=== PATIENT | female | born 1980 | race Caucasian/White ===

== ENCOUNTER 2016-11-09 15:31 | Emergency (ER) | payer MEDICAID ==
[~2016-11-09] VITALS: Ht 175.3 cm; Wt 56.0 kg
[~2016-11-09 15:31] MED LIST: ALPR2TAB3 PO; ASPI81TA81 PO; METH40TA PO; MIRTA15 PO; OLAN5TAB PO; ZOLP10TA3 PO
[2016-11-09 15:43] VITALS: BP 88/55; PULSE 63; RESP 16; TEMP 98.3; O2SAT 100
[2016-11-09 16:29] LABS: MEAN CORPUSCULAR HGB CONC 29.6 % (32.0-36.0)
[2016-11-09] MEDS ORDERED: SODIUM CHLOR 0.9% 1000 ML INJ 1,000 ML IV ONE (16:30)
[2016-11-09] MEDS ORDERED: REME15TA PO (16:30)
--- NOTE | 2016-11-09 16:36 | PD ---
HPI Chief Complaint: General Weakness Time Seen by Provider: 16:16 Travel History International Travel<30 days: No Contact w/Intl Traveler<30days: No Traveled to known affect area: No History of Present Illness HPI This 36-year-old female is complaining of generalized weakness. She developed food poisoning about 2 days ago. She had vomiting which has settled down. She has ongoing diarrhea. She has a history of colectomy because of familial polyposis. She had a colectomy at the age of 13. She has a history of iron deficiency anemia. Today she went for her pain. Infusion and her doctor noted that she her blood pressure was low and she was somewhat lethargic and recommended that she come here. PFSH Past Medical History Hx Anticoagulant Therapy: Yes (81 MG. 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 ) GERD: No Genitourinary: Yes Headaches: No Hepatitis: No Hiatal Hernia: No Hypertension: No Immune Disorder: No Musculoskeletal: No Psychiatric: Yes Reproductive: No Respiratory: No Immunizations Current: Yes Myocardial Infarction: No Radiation Therapy: No Seizures: No Sleep Apnea: No Ulcer: No Influenza Vaccination: No ?: Not : 12 Para: 4 Miscarriage: 8 : 0 Past Surgical History Abdominal Surgery: Yes (COLECTOMY,APPENDECTOMY, Ileorectal anastomosis) AICD: No Appendectomy: Yes (1994) Arteriovenous Shunt: No Cardiac Surgery: No Ear Surgery: No Endocrine Surgery: No Eye Surgery: No Genitourinary Surgery: No Gynecologic Surgery: No Insulin Pump: No Oral Surgery: No Pacemaker: No Thoracic Surgery: No Other Surgery: Yes (TIBULO VILLOUS MASS REMOVED 04/2013) Social History Alcohol Use: No Tobacco Use: Yes (1 PPD) Substance Use: Yes ( PREVIOUS PSA ABUSE/ MARIJUANA) Allergies-Medications (Allergen,Severity, Reaction): Coded Allergies: Ativan (Verified Allergy, Severe, sts memory loss, 11/09/16) Compazine (Verified Allergy, Severe, seizures, 11/09/16) Fentanyl (Verified Allergy, Severe, Tachycardia, SEIZURES, 11/09/16) Haldol (Verified Allergy, Severe, EPS, 11/09/16) Keflex (Verified Allergy, Severe, BLOODY STOOL, 11/09/16) Morphine (Verified Allergy, Severe, Seizures, 11/09/16) Phenergan (Verified Allergy, Severe, Tachycardia, 11/09/16) Latex (Verified Allergy, Intermediate, Itching, 11/09/16) Propofol (Verified Allergy, Mild, VOMITTING, 11/09/16) Buspar (Verified Allergy, Unknown, 11/09/16) Demerol (Verified Allergy, Unknown, UNKNOWN, 11/09/16) Versed (Verified Allergy, Unknown, UNKNOWN, 11/09/16) Reported Meds & Prescriptions Reported Meds & Active Scripts Active Reported Remeron (Mirtazapine) 15 Mg Tab 7.5 Mg PO HS Methadone (Methadone HCl) 40 Mg Tab 50 Mg PO DAILY Mirtazapine 15 Mg Tab 7.5 Mg PO HS Olanzapine 5 Mg Tab 5 Mg PO HS Zolpidem (Zolpidem Tartrate) 10 Mg Tab 10 Mg PO HS PRN Alprazolam 2 Mg Tab 2 Mg PO TID PRN Review of Systems General / Constitutional: No: Fever, Chills Eyes: No: Diploplia HENT: No: Headaches Cardiovascular: No: Chest Pain or Discomfort Respiratory: No: Cough Gastrointestinal: Positive: Vomiting, Diarrhea Genitourinary: No: Frequency Skin: No Rash Neurologic: Positive: Weakness, No: Focal Abnormalities Endocrine: No: Heat Intolerance Hematologic/Lymphatic: No: Easy Bruising Physical Exam Narrative GENERAL: Thin female she is somewhat low. Arrival SKIN: Focused skin assessment warm/dry. HEAD: Atraumatic. Normocephalic. EYES: Pupils equal and round. No scleral icterus. No injection or drainage. ENT: No nasal bleeding or discharge. Mucous membranes pink and moist. NECK: Trachea midline. No JVD. CARDIOVASCULAR: Regular rate and rhythm. No murmur appreciated. RESPIRATORY: No accessory muscle use. Clear to auscultation. Breath sounds equal bilaterally. GASTROINTESTINAL: Abdomen soft, non-tender, nondistended. Hepatic and splenic margins not palpable. MUSCULOSKELETAL: No obvious deformities. No clubbing. No cyanosis. No edema. NEUROLOGICAL: Listless. No obvious cranial nerve deficits. Motor grossly within normal limits. Normal speech. PSYCHIATRIC: Appropriate mood and affect; insight and judgment normal. Data Data Last Documented VS Vital Signs Date Time Temp Pulse Resp B/P Pulse Ox O2 Delivery O2 Flow Rate FiO2 11/09/16 17:14 62 18 105/52 97 Room Air 11/09/16 15:43 98.3 Orders Complete Blood Count With Diff (11/09/16 16:27) Comprehensive Metabolic Panel (11/09/16 16:27) Thyroid Stimulating Hormone (11/09/16 16:27) Sodium Chlor 0.9% 1000 Ml Inj (Ns 1000 M (11/09/16 16:30) Potassium Chloride (Kcl) (11/09/16 18:00) Labs Laboratory Tests Test 11/09/16 16:40 White Blood Count 3.0 TH/MM3 Red Blood Count 4.37 MIL/MM3 Hemoglobin 8.1 GM/DL Hematocrit 27.5 % Mean Corpuscular Volume 62.9 FL Mean Corpuscular Hemoglobin 18.6 PG Mean Corpuscular Hemoglobin 29.6 % Concent Red Cell Distribution Width 18.1 % Platelet Count 247 TH/MM3 Mean Platelet Volume 7.4 FL Neutrophils (%) (Auto) 38.5 % Lymphocytes (%) (Auto) 46.5 % Monocytes (%) (Auto) 12.7 % Eosinophils (%) (Auto) 1.8 % Basophils (%) (Auto) 0.5 % Neutrophils # (Auto) 1.2 TH/MM3 Lymphocytes # (Auto) 1.3 TH/MM3 Monocytes # (Auto) 0.4 TH/MM3 Eosinophils # (Auto) 0.1 TH/MM3 Basophils # (Auto) 0.0 TH/MM3 CBC Comment AUTO DIFF Differential Comment AUTO DIFF CONFIRMED Sodium Level 142 MEQ/L Potassium Level 3.2 MEQ/L Chloride Level 104 MEQ/L Carbon Dioxide Level 30.0 MEQ/L Anion Gap 8 MEQ/L Blood Urea Nitrogen 18 MG/DL Creatinine 0.97 MG/DL Estimat Glomerular Filtration 65 ML/MIN Rate Random Glucose 89 MG/DL Calcium Level 8.0 MG/DL Total Bilirubin 0.2 MG/DL Aspartate Amino Transf 15 U/L (AST/SGOT) Alanine Aminotransferase 21 U/L (ALT/SGPT) Alkaline Phosphatase 50 U/L Total Protein 6.2 GM/DL Albumin 3.1 GM/DL Thyroid Stimulating Hormone 1.560 uIU/ML 3rd Gen [facility] Medical Decision Making Medical Screen Exam Complete: Yes Emergency Medical Condition: Yes Medical Record Reviewed: Yes Differential Diagnosis Differential includes gastroenteritis, dehydration Narrative Course Patient has been given IV fluids and has become more alert. Her potassium is low at 3.2 and she's been given oral supplement. She has been tolerating fluids well and is stable for discharge Diagnosis Primary Impression: Gastroenteritis Additional Impression: Dehydration Disposition: 01 DISCHARGE HOME Condition: Stable Karan Bhakta MD Nov 09, 2016 16:36
[2016-11-09 16:53] LABS: AUTOMATED NEUTROPHIL # 1.2 TH/MM3 (1.8-7.7); BASOPHIL % 0.5 % (0.0-2.0); EOSINOPHIL # 0.1 TH/MM3 (0-0.4); EOSINOPHIL % 1.8 % (0.0-4.0); HEMATOCRIT 27.5 % (35.0-46.0); LYMPH % 46.5 % (9.0-44.0); LYMPHOCYTE # 1.3 TH/MM3 (1.0-4.8); MEAN CELL VOLUME 62.9 FL (80.0-100.0); MEAN CORPUSCULAR HEMOGLOBIN 18.6 PG (27.0-34.0); MONO % 12.7 % (0.0-8.0); NEUT % 38.5 % (16.0-70.0); PLATELET COUNT 247 TH/MM3 (150-450); RED BLOOD COUNT 4.37 MIL/MM3 (4.00-5.30); RED CELL DISTRIBUTION WIDTH 18.1 % (11.6-17.2)
[2016-11-09 17:14] VITALS: BP 105/52; PULSE 62; RESP 18; O2SAT 97
[2016-11-09 17:23] LABS: CHLORIDE 104 MEQ/L (98-107); POTASSIUM 3.2 MEQ/L (3.5-5.1); SODIUM (NA) 142 MEQ/L (136-145)
[2016-11-09 17:27] LABS: ANION GAP 8 MEQ/L (5-15); BLOOD UREA NITROGEN 18 MG/DL (7-18)
[2016-11-09 17:30] LABS: ALT (GPT) 21 U/L (10-53); AST (GOT) 15 U/L (15-37); GLOMERULAR FILTRATION RATE 65 ML/MIN (>89)
[2016-11-09 17:31] LABS: TOTAL BILIRUBIN ADULT 0.2 MG/DL (0.2-1.0)
[2016-11-09 17:33] LABS: ALKALINE PHOSPHATASE 50 U/L (45-117)
[2016-11-09] MEDS ORDERED: POTASSIUM CHLORIDE 20 MEQ CONTROLLED RELEASE TAB PO ONE (18:00)
[2016-11-09 18:03] LABS: HEMO FLAGS AUTO DIFF
[2016-11-09 18:19] LABS: SCAN/DIFF AUTO DIFF CONFIRMED
[2016-11-09 18:41] VITALS: BP 100/62
[2016-11-23] MEDS ORDERED: AMOX500T PO ×2 (11:09→15:22)
== END 2016-11-09 18:43 | disposition home or self-care (01) ==
LOC: PHED 15:31
DX: K52.9 Noninfective gastroenteritis and colitis, unspecified (principal); E86.0 Dehydration
CPT/HCPCS: 80053; 84443; 85025; 96360; 99284; J7030

== ENCOUNTER 2017-03-15 13:54 | Inpatient (IN) | payer MEDICAID ==
[~2017-03-15] VITALS: Ht 172.7 cm; Wt 65.6 kg
[2017-03-15] VITALS (18 sets, daily range): BP systolic 119–171; BP diastolic 80–97; PULSE 68–88; RESP 12–16; TEMP 97.8; O2SAT 96–100
[~2017-03-15 13:54] MED LIST changes: +AMOX500T PO; -ASPI81TA81 PO; -MIRTA15 PO; +REME15TA PO
[2017-03-15] MEDS ORDERED: NALOXONE HCL 0.4 MG/ML AMP ONE ×4 (14:00→14:11)
[2017-03-15] MEDS ORDERED: SUCCINYLCHOLINE CHLORIDE 200 MG/10 ML VIAL ONE (14:12)
[2017-03-15] MEDS ORDERED: ETOMIDATE 20 MG/10 ML VIAL ONE (14:12)
[2017-03-15] MEDS ORDERED: PROPOFOL 1000 MG/100 ML INJ 100 ML ONE (14:25)
[2017-03-15] MEDS ORDERED: SODIUM CHLOR 0.9% 1000 ML INJ 1,000 ML IV SCH (14:25)
[2017-03-15] MEDS ORDERED: ETOMIDATE 20 MG/10 ML VIAL IV PUSH ONE (14:30)
[2017-03-15] MEDS ORDERED: SUCCINYLCHOLINE CHLORIDE 200 MG/10 ML VIAL IV PUSH ONE (14:30)
[2017-03-15] MEDS ORDERED: SODIUM CHLORIDE 0.9% FLUSH 5 ML FLUSH IV FLUSH PRN (14:30)
[2017-03-15] MEDS ORDERED: PROPOFOL 1000 MG/100 ML INJ 100 ML IV SCH (14:30)
[2017-03-15] MEDS ORDERED: NALOXONE HCL 0.4 MG/ML AMP IV PUSH PRN (14:30)
[2017-03-15] MEDS ORDERED: ONDANSETRON HCL 4 MG/2 ML VIAL IV PUSH ONE (14:30)
--- NOTE | 2017-03-15 15:03 | RADRPT ---
EXAM DATE/TIME: 03/15/2017 14:37 [place] COMPARISON: No previous studies available for comparison. INDICATIONS : Post intubation; overdose. MEDICAL HISTORY : Unobtainable. SURGICAL HISTORY : Unobtainable. ENCOUNTER: Initial ACUITY: 1 day PAIN SCORE: Non-responsive. LOCATION: Bilateral chest FINDINGS: A single view of the chest demonstrates endotracheal tube in satisfactory position. NG tube in stomac h. Minimal basal atelectasis. Heart size within normal limits. No pneumothorax. CONCLUSION: 1. Endotracheal tube in satisfactory position. Minimal basal atelectasis. Warren Mathew MD on March 15, 2017 at 15:00 Board Certified Radiologist. This report was verified electronically.
[2017-03-15 15:14] LABS: BLOOD, URINE NEG (NEG); COMMENT (UR) CATH-CULT NOT IND; CULTURE IF INDICATED CATH CULTURE NOT IND; GLUCOSE,URINE NEG (NEG); KETONE, URINE NEG (NEG); NITRITE,URINE NEG (NEG); PH, URINE 5.5 (5.0-8.5); URINE COLOR YELLOW (YELLW/STRAW)
[2017-03-15 15:24] LABS: AUTOMATED NEUTROPHIL # 2.6 TH/MM3 (1.8-7.7); BASOPHIL % 0.7 % (0.0-2.0); EOSINOPHIL % 0.7 % (0.0-4.0); HEMATOCRIT 43.2 % (35.0-46.0); LYMPH % 34.3 % (9.0-44.0); LYMPHOCYTE # 1.6 TH/MM3 (1.0-4.8); MEAN CELL VOLUME 82.5 FL (80.0-100.0); MEAN CORPUSCULAR HEMOGLOBIN 27.3 PG (27.0-34.0); MEAN CORPUSCULAR HGB CONC 33.1 % (32.0-36.0); MONO % 11.1 % (0.0-8.0); NEUT % 53.2 % (16.0-70.0); PLATELET COUNT 199 TH/MM3 (150-450); RED BLOOD COUNT 5.24 MIL/MM3 (4.00-5.30); RED CELL DISTRIBUTION WIDTH 15.1 % (11.6-17.2); WHITE BLOOD COUNT 4.8 TH/MM3 (4.0-11.0)
[2017-03-15 15:27] LABS: HEMO FLAGS AUTO DIFF
[2017-03-15 15:30] LABS: ANION GAP 11 MEQ/L (5-15)
[2017-03-15 15:31] LABS: AMPHETAMINE, URINE NEG (NEG); BARBITURATES, URINE NEG (NEG); COCAINE, URINE POS (NEG)
[2017-03-15 15:37] LABS: ACETAMINOPHEN LESS THAN 2.0 MCG/ML (10.0-30.0); ALKALINE PHOSPHATASE 108 U/L (45-117); ALT (GPT) 49 U/L (10-53); AST (GOT) 35 U/L (15-37); BICARBONATE 25.5 MEQ/L (21.0-32.0); BLOOD UREA NITROGEN 11 MG/DL (7-18); CHLORIDE 104 MEQ/L (98-107); CREATINE KINASE 141 U/L (26-192); GLOMERULAR FILTRATION RATE 68 ML/MIN (>89); POTASSIUM 3.3 MEQ/L (3.5-5.1); SODIUM (NA) 140 MEQ/L (136-145); TOTAL BILIRUBIN ADULT 0.8 MG/DL (0.2-1.0)
[2017-03-15 15:40] LABS: APTT (PATIENT) 28.3 SEC (24.3-30.1); PROTHROMBIN TIME - PATIENT 10.9 SEC (9.8-11.6)
[2017-03-15] MEDS ORDERED: METH10TA PO (15:42)
[2017-03-15] MEDS ORDERED: MIDAZOLAM 100 MG/ML INJ 100 ML IV SCH ×2 (15:45→17:00)
[2017-03-15] MEDS ORDERED: MIDAZOLAM 100 MG/ML INJ 100 ML ONE (15:47)
[2017-03-15 16:11] LABS: SCAN/DIFF AUTO DIFF CONFIRMED
--- NOTE | 2017-03-15 16:17 | PD ---
HPI Chief Complaint: OD/ Ingestion Time Seen by Provider: 14:25 Travel History International Travel<30 days: No Contact w/Intl Traveler<30days: No Traveled to known affect area: No History of Present Illness HPI Patient is a 36-year-old female brought in by EMS after she was found obtunded. Her mother called police for a well-being check and she was found at in male' s house in bed unresponsive. She does have a history of drug abuse. The gentleman with her did report that she had been using a lot of drugs, but was unable to specify what. EMS says that they gave a total of 2 mg of Narcan with some response. Per EMS, she was barely breathing on their arrival. Currently, patient is unconscious and unable to provide any history. PFSH Past Medical History Hx Anticoagulant Therapy: Yes (81 MG. ASA DAILY) ADD: Yes ADHD: Yes Anemia: Yes Arthritis: No Asthma: No Autoimmune Disease: No Blood Disorders: No Bipolar Disorder: Yes Anxiety: Yes Depression: Yes Heart Rhythm Problems: Yes (TACHYCARDIA) Cancer: Yes (PRECANCEROUS POLYPS) Cardiac Catheterization: Yes Cardiovascular Problems: Yes (SINOATRIAL NODE DYSFUNCTION, TRICUSPID VALVE D/O) High Cholesterol: No Chemotherapy: No Chest Pain: No Congestive Heart Failure: No COPD: No Cerebrovascular Accident: No Diabetes: Yes Diminished Hearing: No Endocrine: No Gastrointestinal Disorders: Yes (COLECTOMY DUE TO Familial adenomatous polyposis ) GERD: No Genitourinary: Yes Headaches: No Hepatitis: No Hiatal Hernia: No Hypertension: No Immune Disorder: No Musculoskeletal: No Psychiatric: Yes Reproductive: No Respiratory: No Immunizations Current: Yes Myocardial Infarction: No Radiation Therapy: No Seizures: No Sleep Apnea: No Ulcer: No Tetanus Vaccination: Unknown Influenza Vaccination: No ?: Not : 12 Para: 4 Miscarriage: 8 : 0 Past Surgical History Abdominal Surgery: Yes (COLECTOMY,APPENDECTOMY, Ileorectal anastomosis) AICD: No Appendectomy: Yes (1994) Arteriovenous Shunt: No Cardiac Surgery: No Ear Surgery: No Endocrine Surgery: No Eye Surgery: No Genitourinary Surgery: No Gynecologic Surgery: No Insulin Pump: No Oral Surgery: No Pacemaker: No Thoracic Surgery: No Other Surgery: Yes (TIBULO VILLOUS MASS REMOVED 04/2013) Social History Alcohol Use: No Tobacco Use: Yes (1 PPD) Substance Use: Yes (OPIATES, BENZOS, METHADONE) Allergies-Medications (Allergen,Severity, Reaction): Coded Allergies: Ativan (Verified Allergy, Severe, sts memory loss, 11/09/16) Compazine (Verified Allergy, Severe, seizures, 11/09/16) Fentanyl (Verified Allergy, Severe, Tachycardia, SEIZURES, 11/09/16) Haldol (Verified Allergy, Severe, EPS, 11/09/16) Keflex (Verified Allergy, Severe, BLOODY STOOL, 11/09/16) Morphine (Verified Allergy, Severe, Seizures, 11/09/16) Phenergan (Verified Allergy, Severe, Tachycardia, 11/09/16) Latex (Verified Allergy, Intermediate, Itching, 11/09/16) Propofol (Verified Allergy, Mild, VOMITTING, 11/09/16) Buspar (Verified Allergy, Unknown, 11/09/16) Reported Meds & Prescriptions Reported Meds & Active Scripts Active Reported Methadone (Methadone HCl) 10 Mg Tab 170 Mg PO DAILY Remeron (Mirtazapine) 15 Mg Tab 7.5 Mg PO HS Olanzapine 5 Mg Tab 5 Mg PO HS Zolpidem (Zolpidem Tartrate) 10 Mg Tab 10 Mg PO HS PRN Alprazolam 2 Mg Tab 2 Mg PO TID PRN Review of Systems ROS Limitations: Intoxication, Altered Mental Status Physical Exam Narrative GENERAL: Obtunded, minimal response to painful stimuli. SKIN: Focused skin assessment warm/dry. Tract cantrell to left before meals. No signs of infection. HEAD: Atraumatic. Normocephalic. EYES: Pupils equal and round and reactive (small). No scleral icterus. ENT: Mucous membranes pink and moist. NECK: Trachea midline. No JVD. CARDIOVASCULAR: Tachycardia. No murmur appreciated. RESPIRATORY: Agonal breathing. Clear to auscultation. Breath sounds equal bilaterally. GASTROINTESTINAL: Abdomen soft, non-tender, nondistended. MUSCULOSKELETAL: No obvious deformities. No clubbing. No cyanosis. No edema. NEUROLOGICAL: Unconscious. No obvious cranial nerve deficits. Motor grossly within normal limits. Normal speech. PSYCHIATRIC: Appropriate mood and affect; insight and judgment normal. Data Data Last Documented VS Vital Signs Date Time Temp Pulse Resp B/P Pulse Ox O2 Delivery O2 Flow Rate FiO2 03/15/17 16:00 86 14 156/89 100 Ventilator 40 03/15/17 14:00 2 03/15/17 14:00 97.8 Orders Naloxone Inj (Narcan Inj) (03/15/17 14:00) Naloxone Inj (Narcan Inj) (03/15/17 14:04) Naloxone Inj (Narcan Inj) (03/15/17 14:07) Naloxone Inj (Narcan Inj) (03/15/17 14:11) Etomidate Inj (Amidate Inj) (03/15/17 14:12) Succinylcholine Inj (Quelicin Inj) (03/15/17 14:12) Propofol 1000 Mg/100 Ml Inj (Diprivan 10 (03/15/17 14:25) Complete Blood Count With Diff (03/15/17 14:25) Comprehensive Metabolic Panel (03/15/17 14:25) Creatine Kinase (Cpk) (03/15/17 14:25) Prothrombin Time / Inr (Pt) (03/15/17 14:25) Act Partial Throm Time (Ptt) (03/15/17 14:25) Troponin I (03/15/17 14:25) Urinalysis - C+S If Indicated (03/15/17 14:25) Ua Includes Microscopic (03/15/17 14:25) Lactic Acid Sepsis Protocol (03/15/17 14:25) Chest, Single Ap (03/15/17 14:25) Ct Brain W/O Iv Contrast(Rout) (03/15/17 14:25) Blood Glucose (03/15/17 14:25) Ecg Monitoring (03/15/17 14:25) Iv Access Insert/Monitor (03/15/17 14:25) Oximetry (03/15/17 14:25) Urinary Catheter Insert/Apply (03/15/17 14:25) Sodium Chloride 0.9% Flush (Ns Flush) (03/15/17 14:30) Sodium Chlor 0.9% 1000 Ml Inj (Ns 1000 M (03/15/17 14:25) Drug Screen, Random Urine (03/15/17 14:25) Alcohol (Ethanol) (03/15/17 14:25) Tylenol (Acetaminophen) (03/15/17 14:25) Salicylates (Aspirin) (03/15/17 14:25) Ed Urine Pregnancytest Poc (03/15/17 14:25) Propofol 1000 Mg/100 Ml Inj (Diprivan 10 (03/15/17 14:30) Ondansetron Inj (Zofran Inj) (03/15/17 14:30) Naloxone Inj (Narcan Inj) (03/15/17 14:30) Succinylcholine Inj (Quelicin Inj) (03/15/17 14:30) Etomidate Inj (Amidate Inj) (03/15/17 14:30) Midazolam 100 Mg/Ml Inj (Versed 100 Mg/M (03/15/17 15:45) Neurological Rass Scale Q30MX2,Q2HX4,Q4H (03/15/17 15:32) Midazolam 100 Mg/Ml Inj (Versed 100 Mg/M (03/15/17 15:47) Admit Order (Ed Use Only) (03/15/17 ) Labs Laboratory Tests Test 03/15/17 03/15/17 03/15/17 14:30 14:35 15:18 White Blood Count 4.8 TH/MM3 Red Blood Count 5.24 MIL/MM3 Hemoglobin 14.3 GM/DL Hematocrit 43.2 % Mean Corpuscular Volume 82.5 FL Mean Corpuscular Hemoglobin 27.3 PG Mean Corpuscular Hemoglobin 33.1 % Concent Red Cell Distribution Width 15.1 % Platelet Count 199 TH/MM3 Mean Platelet Volume 7.0 FL Neutrophils (%) (Auto) 53.2 % Lymphocytes (%) (Auto) 34.3 % Monocytes (%) (Auto) 11.1 % Eosinophils (%) (Auto) 0.7 % Basophils (%) (Auto) 0.7 % Neutrophils # (Auto) 2.6 TH/MM3 Lymphocytes # (Auto) 1.6 TH/MM3 Monocytes # (Auto) 0.5 TH/MM3 Eosinophils # (Auto) 0.0 TH/MM3 Basophils # (Auto) 0.0 TH/MM3 CBC Comment AUTO DIFF Differential Comment AUTO DIFF CONFIRMED Prothrombin Time 10.9 SEC Prothromb Time International 1.0 RATIO Ratio Activated Partial 28.3 SEC Thromboplast Time Urine Color YELLOW Urine Turbidity CLEAR Urine pH 5.5 Urine Specific [place] 1.017 Urine Protein NEG mg/dL Urine Glucose (UA) NEG mg/dL Urine Ketones NEG mg/dL Urine Occult Blood NEG Urine Nitrite NEG Urine Bilirubin NEG Urine Urobilinogen LESS THAN 2.0 MG/DL Urine Leukocyte Esterase NEG Microscopic Urinalysis Comment CATH-CULT NOT IND Sodium Level 140 MEQ/L Potassium Level 3.3 MEQ/L Chloride Level 104 MEQ/L Carbon Dioxide Level 25.5 MEQ/L Anion Gap 11 MEQ/L Blood Urea Nitrogen 11 MG/DL Creatinine 0.94 MG/DL Estimat Glomerular Filtration 68 ML/MIN Rate Random Glucose 115 MG/DL Calcium Level 8.7 MG/DL Total Bilirubin 0.8 MG/DL Aspartate Amino Transf 35 U/L (AST/SGOT) Alanine Aminotransferase 49 U/L (ALT/SGPT) Alkaline Phosphatase 108 U/L Total Creatine Kinase 141 U/L Troponin I LESS THAN 0.02 NG/ML Total Protein 8.3 GM/DL Albumin 3.9 GM/DL Urine Opiates Screen NEG Acetaminophen Level LESS THAN 2.0 MCG/ML Urine Barbiturates Screen NEG Urine Amphetamines Screen NEG Urine Benzodiazepines Screen POS Urine Cocaine Screen POS Urine Cannabinoids Screen NEG Ethyl Alcohol Level LESS THAN 3 MG/DL Lactic Acid Level 1.6 mmol/L Salicylates Level 1.8 MG/DL Blood Gas Puncture Site RT BRACHIAL Blood Gas Patient Temperature 98.6 Blood Gas HCO3 25 mmol/L Blood Gas Base Excess 1.5 mmol/L Blood Gas Oxygen Saturation 94 % Arterial Blood pH 7.44 Arterial Blood Partial 38 mmHg Pressure CO2 Arterial Blood Partial 75 mmHG Pressure O2 Arterial Blood Oxygen Content 17.2 Vol % Arterial Blood 1.7 % Carboxyhemoglobin Arterial Blood Methemoglobin 0.4 % Blood Gas Hemoglobin 13.0 G/DL Oxygen Delivery Device VENTILATOR Blood Gas Ventilator Setting AC 14/500/5+ Blood Gas Inspired Oxygen 40 % [facility] Medical Decision Making Medical Screen Exam Complete: Yes Emergency Medical Condition: Yes Medical Record Reviewed: Yes Interpretation(s) ECG shows sinus tachycardia at 106, no ST elevation or depression Differential Diagnosis OD versus electrolyte abnormality versus head injury Narrative Course Patient is a 36-year-old female brought in by EMS unconscious. Patient received 2 mg of Narcan by EMS. She was given another 2 mg on arrival here with no response. Patient found to have agonal breathing, decision made to intubate. Patient intubated without issue. IV was established, she was continued on the cardiac exercise specialist. Patient sedated with propofol and Versed. Given IV fluids. Labs show no acute abnormalities. Tox screen is positive for benzodiazepines and cocaine. She will be admitted for further management. Critical Care Narrative Aggregate critical care time was 35 minutes. Time to perform other separately billable procedures was not included in the critical care time. My time did not include minutes spent treating any other patients simultaneously or on activities that did not directly contribute to the patient's treatment. The services I provided to this patient were to treat and/or prevent clinically significant deterioration that could result in: Serious illness or I provided critical care services requiring my management, as noted below: Chart data review, documentation time, medication orders and management, vital sign assessments/reviewing monitor data, ordering and reviewing lab tests, ordering and interpreting/reviewing x-rays and diagnostic studies, care of the patient and discussion of the patient with the admitting physicians. Procedures Procedure Narrative After the risks and benefits were discussed the following procedure was performed: INTUBATION: The patient was put in optimal position for the procedure. Rapid sequence intubation was initiated by me using 20 milligrams of etomidate IV and 100 milligrams of succinylcholine IV. The patient was intubated with a 7.5 cuffed endotracheal tube. Tube placement was confirmed by visualization of the tube and balloon passing through the cords, capnometry and subsequent chest x-ray. Breath sounds were equal and well aerated bilaterally postintubation. No breath sounds over stomach. Patient tolerated procedure well. Diagnosis Primary Impression: Acute respiratory failure Qualified Code: J96.00 - Acute respiratory failure, unspecified whether with hypoxia or hypercapnia Additional Impression: Drug overdose Qualified Code: T50.904A - Drug overdose, undetermined intent, initial encounter Admitting Information Admitting Physician Requests: Admit Condition: Critical Deepika Currie MD Mar 15, 2017 16:17
[2017-03-15 16:53] LABS: BLOOD GAS BASE EXCESS 1.5 mmol/L (-2-2); BLOOD GAS CARBOXYHEMOGLOBIN 1.7 % (0-4); BLOOD GAS HCO3 25 mmol/L (22-26); BLOOD GAS METHEMOGLOBIN 0.4 % (0-2); BLOOD GAS O2 HGB SATURATION 94 % (90-100); BLOOD GAS OXYGEN CONTENT 17.2 Vol % (12.0-20.0); BLOOD GAS PCO2 38 mmHg (38-42); BLOOD GAS PO2 75 mmHG (61-120); CRITICAL VALUE NO; DRAW SITE RT BRACHIAL; FIO2 40 %; NUMBER OF ARTERIAL PUNCTURES 2; OXYGEN DEVICE VENTILATOR; TEMP CORR TO 98.6; VENT SETTINGS AC 14/500/5+
[2017-03-15 16:54] LABS: STAT YES; ULNAR PULSE PRESENT
--- NOTE | 2017-03-15 16:57 | HHI.HP ---
[facility] Service Critical Care Medicine Primary Care Physician Non-Staff Admission Diagnosis Overdose, respiratory failure Diagnosis: (1) Acute respiratory failure Diagnosis: Principal (2) Drug overdose Diagnosis: Principal (3) Acute encephalopathy Diagnosis: Principal (4) Hypokalemia Diagnosis: Principal (5) Cervical cancer Diagnosis: Secondary (6) Familial adenomatous polyposis Diagnosis: Secondary (7) Postural orthostatic tachycardia syndrome Diagnosis: Secondary (8) IVDU (intravenous drug user) Diagnosis: Secondary Chief Complaint: Drug overdose and respiratory failure Travel History International Travel<30 Days: No Contact w/Intl Traveler <30 Da: No Traveled to Known Affected Are: No History of Present Illness Patient is a 36-year-old female with past medical history significant for IV drug use, substance abuse with opiates, benzodiazepines, methadone and cocaine, PTSD, familial adenomatous polyposis status post colectomy, history of cervical cancer, also orthostatic tachycardia syndrome. Patient was brought in by the EMS after being found unresponsive after suspected drug overdose. Patient received 2 mg total IV Narcan by EMS, and another 2 mg IV Narcan in the ED. She remained unresponsive was intubated for airway protection. Postintubation chest x-ray was unremarkable for acute infiltrates. Urine drug screen showed benzodiazepines and cocaine. I evaluated the patient in the ED. She is intubated on propofol and Versed extremities. There is evidence of IV drug use multiple tract cantrell antecubital fossa. CT head is pending at this time Review of Systems ROS Limitations: Intubated Past Family Social History Allergies: Coded Allergies: Ativan (Verified Allergy, Severe, sts memory loss, 11/09/16) Compazine (Verified Allergy, Severe, seizures, 11/09/16) Fentanyl (Verified Allergy, Severe, Tachycardia, SEIZURES, 11/09/16) Haldol (Verified Allergy, Severe, EPS, 11/09/16) Keflex (Verified Allergy, Severe, BLOODY STOOL, 11/09/16) Morphine (Verified Allergy, Severe, Seizures, 11/09/16) Phenergan (Verified Allergy, Severe, Tachycardia, 11/09/16) Latex (Verified Allergy, Intermediate, Itching, 11/09/16) Propofol (Verified Allergy, Mild, VOMITTING, 11/09/16) Buspar (Verified Allergy, Unknown, 11/09/16) Past Medical History IV drug use History of opiate benzodiazepine and cocaine dependence Postural orthostatic tachycardia syndrome Familial adenomatous polyposis status post colectomy PTSD Past Surgical History Colectomy Appendectomy Ileorectal anastomosis Tubulovillous adenoma removed 04/2013 Reported Medications Methadone (Methadone HCl) 10 Mg Tab 170 Mg PO DAILY Remeron (Mirtazapine) 15 Mg Tab 7.5 Mg PO HS Olanzapine 5 Mg Tab 5 Mg PO HS Zolpidem (Zolpidem Tartrate) 10 Mg Tab 10 Mg PO HS PRN Alprazolam 2 Mg Tab 2 Mg PO TID PRN Active Ordered Medications Reviewed Family History Father of cancer Mother has diabetes Social History Polysubstance abuse, IV drug use including opiates and benzos methadone and cocaine use Positive alcohol and smoking Physical Exam Vital Signs Vital Signs Date Time Temp Pulse Resp B/P Pulse Ox O2 Delivery O2 Flow Rate FiO2 03/15/17 16:30 82 14 147/81 100 Ventilator 40 03/15/17 16:00 86 14 156/89 100 Ventilator 40 03/15/17 15:30 82 14 165/90 100 Ventilator 40 03/15/17 15:00 78 14 170/80 100 Ventilator 40 03/15/17 14:36 99 40 03/15/17 14:30 88 14 163/86 100 Ventilator 40 03/15/17 14:25 40 03/15/17 14:00 96 Nasal Cannula 2 03/15/17 14:00 12 96 Nasal Cannula 03/15/17 14:00 97.8 85 12 171/97 96 Nasal Cannula 2 03/15/17 14:00 97.8 80 12 171/80 96 Physical Exam GENERAL: Intubated sedated with Versed, Propofol SKIN: Skin warm/dry. Multiple track cantrell antecubital fossa HEAD: Atraumatic. Normocephalic. EYES: Pupils equal and round, reactive. No scleral icterus. ENT: Mucous membranes dry. Orotracheally intubated NECK: Trachea midline. No JVD. CARDIOVASCULAR: Regular rate and rhythm. No murmur appreciated. (Bedside US limited view, unable to rule out or rule in vegetation) RESPIRATORY: Clear to auscultation. Breath sounds equal bilaterally. GASTROINTESTINAL: Abdomen soft, non-tender, nondistended. Hepatic and splenic margins not palpable. Well healed surgical scars MUSCULOSKELETAL: No obvious deformities. No clubbing. No cyanosis. No edema. NEUROLOGICAL: Intubated heavily sedated with propofol and fentanyl. STEFANO. Moves upper and lower extremities equally Laboratory Laboratory Tests Test 03/15/17 03/15/17 03/15/17 14:30 14:35 15:18 White Blood Count 4.8 Red Blood Count 5.24 Hemoglobin 14.3 Hematocrit 43.2 Mean Corpuscular Volume 82.5 Mean Corpuscular Hemoglobin 27.3 Mean Corpuscular Hemoglobin 33.1 Concent Red Cell Distribution Width 15.1 Platelet Count 199 Mean Platelet Volume 7.0 Neutrophils (%) (Auto) 53.2 Lymphocytes (%) (Auto) 34.3 Monocytes (%) (Auto) 11.1 Eosinophils (%) (Auto) 0.7 Basophils (%) (Auto) 0.7 Neutrophils # (Auto) 2.6 Lymphocytes # (Auto) 1.6 Monocytes # (Auto) 0.5 Eosinophils # (Auto) 0.0 Basophils # (Auto) 0.0 CBC Comment AUTO DIFF Differential Comment AUTO DIFF CONFIRMED Prothrombin Time 10.9 Prothromb Time International 1.0 Ratio Activated Partial 28.3 Thromboplast Time Urine Color YELLOW Urine Turbidity CLEAR Urine pH 5.5 Urine Specific [place] 1.017 Urine Protein NEG Urine Glucose (UA) NEG Urine Ketones NEG Urine Occult Blood NEG Urine Nitrite NEG Urine Bilirubin NEG Urine Urobilinogen LESS THAN 2.0 Urine Leukocyte Esterase NEG Microscopic Urinalysis Comment CATH-CULT NOT IND Sodium Level 140 Potassium Level 3.3 Chloride Level 104 Carbon Dioxide Level 25.5 Anion Gap 11 Blood Urea Nitrogen 11 Creatinine 0.94 Estimat Glomerular Filtration 68 Rate Random Glucose 115 Calcium Level 8.7 Total Bilirubin 0.8 Aspartate Amino Transf 35 (AST/SGOT) Alanine Aminotransferase 49 (ALT/SGPT) Alkaline Phosphatase 108 Total Creatine Kinase 141 Troponin I LESS THAN 0.02 Total Protein 8.3 Albumin 3.9 Urine Opiates Screen NEG Acetaminophen Level LESS THAN 2.0 Urine Barbiturates Screen NEG Urine Amphetamines Screen NEG Urine Benzodiazepines Screen POS Urine Cocaine Screen POS Urine Cannabinoids Screen NEG Ethyl Alcohol Level LESS THAN 3 Lactic Acid Level 1.6 Salicylates Level 1.8 Blood Gas Puncture Site RT BRACHIAL Blood Gas Patient Temperature 98.6 Blood Gas HCO3 25 Blood Gas Base Excess 1.5 Blood Gas Oxygen Saturation 94 Arterial Blood pH 7.44 Arterial Blood Partial 38 Pressure CO2 Arterial Blood Partial 75 Pressure O2 Arterial Blood Oxygen Content 17.2 Arterial Blood 1.7 Carboxyhemoglobin Arterial Blood Methemoglobin 0.4 Blood Gas Hemoglobin 13.0 Oxygen Delivery Device VENTILATOR Blood Gas Ventilator Setting AC 14/500/5+ Blood Gas Inspired Oxygen 40 Result Diagram: 03/15/17 1430 03/15/17 1430 Imaging Chest x-ray no acute findings Assessment and Plan Assessment and Plan NEURO: Polysubstance abuse/IV drug use Cocaine and benzodiazepine overdose Acute encephalopathy - Propofol and Versed for sedation and ventilator synchrony - Start spontaneous breathing trial once mental status improves - Urine drug screen positive for cocaine and benzodiazepines RESP: Acute respiratory failure - ACV 16/500/5 FiO2 40% - DuoNeb q6hr and PRN - Start SBT once mentation improved. CV: Postural orthostatic tachycardia syndrome - Normal saline IV fluids 2L bolus and 75 ml per hour - Monitor heart rate and blood pressure - 2-D echo if there evidence of sepsis or other evidence of endocarditis otherwise GI: History of Colectomy for familial edematous polyposis - NPO. IV Protonix : - Monitor renal function closely. Wisdom catheter. ID: - Monitor for infection. Follow up on blood and sputum culture HEME: - Monitor CBC, CMP ENDO: Hypokalemia - Electrolyte replacement per protocol PROPH: - Bilateral lower extremity SCDs. Lovenox 40 mg subcutaneous daily. IV Protonix 40 mg daily LINES: - Utilize peripheral IVs, central line if needed CC time 42 min Code Status Full Discussed Condition With Dr. Barajas Problem Qualifiers (1) Acute respiratory failure: Qualified Code: J96.00 - Acute respiratory failure, unspecified whether with hypoxia or hypercapnia (2) Drug overdose: Qualified Code: T50.904A - Drug overdose, undetermined intent, initial encounter (3) Cervical cancer: Qualified Code: C53.9 - Malignant neoplasm of cervix, unspecified site Marco Ruano MD Mar 15, 2017 16:57
[2017-03-15] MEDS ORDERED: POTASSIUM PHOSPHATE MONOBASIC 500 MG TAB PO/TUBE PRN (17:00)
[2017-03-15] MEDS ORDERED: MISCELLANEOUS NURSING INFORMATION XX SCH (17:00)
[2017-03-15] MEDS ORDERED: MAGNESIUM SULFATE INJ 4 GM in SODIUM CHLORIDE 0.9% INJ 92 ML IV PRN (17:00)
[2017-03-15] MEDS ORDERED: POTASSIUM PHOSPHATE INJ 30 MMOL in SODIUM CHLOR 0.9% 250 ML INJ 250 ML IV PRN (17:00)
[2017-03-15] MEDS ORDERED: SODIUM PHOSPHATE INJ 30 MMOL in SODIUM CHLOR 0.9% 250 ML INJ 240 ML IV PRN (17:00)
[2017-03-15] MEDS ORDERED: POTASSIUM CHLOR 20 MEQ PREMIX 100 ML IV PRN ×2 (17:00)
[2017-03-15] MEDS ORDERED: POTASSIUM CHLOR 40 MEQ PREMIX 100 ML IV PRN ×2 (17:00)
[2017-03-15] MEDS ORDERED: MAGNESIUM OXIDE 400 MG TAB PO PRN (17:00)
[2017-03-15] MEDS ORDERED: RESP: ALBUTEROL 2.5 MG/IPRATROPIUM 0.5 MG NEB (PRN) INH (17:00)
[2017-03-15] MEDS ORDERED: CHLORHEXIDINE GLUCONATE 2 % 1 PACK (2 CLOTHS) TOP PRN (17:00)
[2017-03-15] MEDS ORDERED: MAGNESIUM SULFATE INJ 2 GM in SODIUM CHLORIDE 0.9% INJ 96 ML IV PRN (17:00)
[2017-03-15] MEDS ORDERED: ENOXAPARIN SODIUM 40 MG/0.4 ML SYRINGE SQ SCH (17:00)
[2017-03-15] MEDS ORDERED: POTASSIUM CHLORIDE 25 MEQ EFFERVESCENT TAB PO PRN (17:00)
[2017-03-15] MEDS ORDERED: POTASSIUM PHOSPHATE MONOBASIC 500 MG TAB PO PRN (17:00)
[2017-03-15] MEDS: SODIUM CHLOR 0.9% 1000 ML INJ 1,000 ML IV SCH (18:02)
[2017-03-15 19:52] LABS: MAGNESIUM 2.4 MG/DL (1.5-2.5)
[2017-03-15] MEDS: CHLORHEXIDINE 0.12% (ORAL KIT) 15 ML CUP MT SCH (20:00)
--- NOTE | 2017-03-15 23:02 | RADRPT ---
EXAM DATE/TIME: 03/15/2017 22:48 [place] COMPARISON: CT BRAIN W/O CONTRAST, June 01, 2016, 11:08. INDICATIONS : Altered mental status. Possible overdose. RADIATION DOSE: 56.77 CTDIvol (mGy) MEDICAL HISTORY : Non-responsive. SURGICAL HISTORY : Non-responsive. ENCOUNTER: Initial ACUITY: 1 day PAIN SCALE: Non-responsive LOCATION: cranial TECHNIQUE: Multiple contiguous axial images were obtained of the head. Using automated exposure control and adj ustment of the mA and/or kV according to patient size, radiation dose was kept as low as reasonably a chievable to obtain optimal diagnostic quality images. DICOM format image data is available electro nically for review and comparison. FINDINGS: CEREBRUM: The ventricles are normal for age. No evidence of midline shift, mass lesion, hemorrhage or acute in farction. No extra-axial fluid collections are seen. POSTERIOR FOSSA: The cerebellum and brainstem are intact. The 4th ventricle is midline. The cerebellopontine angle i s unremarkable. EXTRACRANIAL: The visualized portion of the orbits is intact. SKULL: The calvaria is intact. No evidence of skull fracture. CONCLUSION: Negative noncontrast CT brain. Kraig Dong MD on March 15, 2017 at 22:59 Board Certified Radiologist. This report was verified electronically.
[2017-03-16] VITALS (8 sets, daily range): BP systolic 128–134; BP diastolic 87–89; PULSE 73–79; RESP 16–19; TEMP 98.5–99; O2SAT 98–100
[2017-03-16 00:15] LABS: BLOOD, URINE SMALL (NEG); COMMENT (UR) CATH-CULTURE IND; CULTURE IF INDICATED CATH CULTURE IND; GLUCOSE,URINE NEG (NEG); KETONE, URINE 40 mg/dL (NEG); MUCUS URINE FEW /lpf (OCC); NITRITE,URINE NEG (NEG); PH, URINE 5.5 (5.0-8.5); SQUAMOUS EPITHELIAL CELL URINE 2 /hpf (0-5); TRANSITIONAL EPI CELLS, URINE 1 /hpf; URINE COLOR YELLOW (YELLW/STRAW)
[2017-03-16] MEDS ORDERED: CHLORHEXIDINE GLUCONATE 2 % 1 PACK (2 CLOTHS) TOP SCH (04:00)
[2017-03-16] MEDS: RESP: ALBUTEROL 2.5 MG/IPRATROPIUM 0.5 MG NEB (SCH) INH ×3 (04:03→15:46)
[2017-03-16] MEDS: PROPOFOL 1000 MG/100 ML INJ 100 ML IV SCH ×2 (04:39→06:01)
[2017-03-16] MEDS: SODIUM CHLOR 0.9% 1000 ML INJ 1,000 ML IV SCH (06:01)
[2017-03-16 07:01] LABS: AUTOMATED NEUTROPHIL # 3.2 TH/MM3 (1.8-7.7); BASOPHIL % 0.4 % (0.0-2.0); EOSINOPHIL % 0.4 % (0.0-4.0); HEMATOCRIT 38.3 % (35.0-46.0); LYMPH % 20.3 % (9.0-44.0); LYMPHOCYTE # 0.9 TH/MM3 (1.0-4.8); MEAN CELL VOLUME 82.5 FL (80.0-100.0); MEAN CORPUSCULAR HEMOGLOBIN 27.4 PG (27.0-34.0); MEAN CORPUSCULAR HGB CONC 33.2 % (32.0-36.0); MONO % 9.5 % (0.0-8.0); NEUT % 69.4 % (16.0-70.0); PLATELET COUNT 162 TH/MM3 (150-450); RED BLOOD COUNT 4.64 MIL/MM3 (4.00-5.30); RED CELL DISTRIBUTION WIDTH 15.8 % (11.6-17.2); WHITE BLOOD COUNT 4.6 TH/MM3 (4.0-11.0)
[2017-03-16 07:05] LABS: HEMO FLAGS AUTO DIFF
[2017-03-16 07:33] LABS: ALKALINE PHOSPHATASE 86 U/L (45-117); ALT (GPT) 35 U/L (10-53); ANION GAP 7 MEQ/L (5-15); AST (GOT) 21 U/L (15-37); BICARBONATE 25.8 MEQ/L (21.0-32.0); BLOOD UREA NITROGEN 7 MG/DL (7-18); CHLORIDE 110 MEQ/L (98-107); GLOMERULAR FILTRATION RATE 89 ML/MIN (>89); POTASSIUM 3.6 MEQ/L (3.5-5.1); SODIUM (NA) 143 MEQ/L (136-145); TOTAL BILIRUBIN ADULT 0.4 MG/DL (0.2-1.0)
[2017-03-16 07:40] LABS: PLATELET ESTIMATE SMEAR NORMAL (NORMAL); PLATELET MORPHOLOGY NORMAL (NORMAL); SCAN/DIFF AUTO DIFF CONFIRMED
[2017-03-16] MEDS: DEXMEDETOMIDINE 200 MCG in NS 50 ML IV SCH ×2 (08:07→09:54)
[2017-03-16] MEDS: CHLORHEXIDINE 0.12% (ORAL KIT) 15 ML CUP MT SCH (08:17)
[2017-03-16] MEDS ORDERED: PANTOPRAZOLE SODIUM 40 MG VIAL IV SCH (09:00)
--- NOTE | 2017-03-16 09:38 | HHI.CCPN ---
Subjective Remarks/Hospital Course Patient is a 36-year-old female with past medical history significant for IV drug use, substance abuse with opiates, benzodiazepines, methadone and cocaine, PTSD, familial adenomatous polyposis status post colectomy, history of cervical cancer, also orthostatic tachycardia syndrome. Patient was brought in by the EMS after being found unresponsive after suspected drug overdose. Patient received 2 mg total Narcan by EMS, and the 2 mg Narcan in the ED. She remained unresponsive was intubated for airway protection. Postintubation chest x-ray was unremarkable for acute infiltrates. Urine drug screen showed benzodiazepines and cocaine. I evaluated the patient in the ED. She is intubated on propofol and Versed extremities. There is evidence of IV drug use multiple tract cantrell antecubital fossa 03/16 No events overnight. Sedated with Diprivan and Versed. Afebrile. Objective Vital Signs Date Time Temp Pulse Resp B/P Pulse Ox O2 Delivery O2 Flow Rate FiO2 03/16/17 06:00 79 03/16/17 04:04 98 40 03/16/17 04:00 98.5 19 128/87 03/15/17 22:21 Ventilator 03/15/17 14:00 2 Result Diagram: 03/16/17 0617 03/16/17 0617 Other Results Laboratory Tests Test 03/15/17 03/15/17 03/15/17 03/15/17 14:30 14:35 15:18 23:34 White Blood Count 4.8 TH/MM3 Red Blood Count 5.24 MIL/MM3 Hemoglobin 14.3 GM/DL Hematocrit 43.2 % Mean Corpuscular Volume 82.5 FL Mean Corpuscular Hemoglobin 27.3 PG Mean Corpuscular Hemoglobin 33.1 % Concent Red Cell Distribution Width 15.1 % Platelet Count 199 TH/MM3 Mean Platelet Volume 7.0 FL Neutrophils (%) (Auto) 53.2 % Lymphocytes (%) (Auto) 34.3 % Monocytes (%) (Auto) 11.1 % Eosinophils (%) (Auto) 0.7 % Basophils (%) (Auto) 0.7 % Neutrophils # (Auto) 2.6 TH/MM3 Lymphocytes # (Auto) 1.6 TH/MM3 Monocytes # (Auto) 0.5 TH/MM3 Eosinophils # (Auto) 0.0 TH/MM3 Basophils # (Auto) 0.0 TH/MM3 CBC Comment AUTO DIFF Differential Comment AUTO DIFF CONFIRMED Prothrombin Time 10.9 SEC Prothromb Time International 1.0 RATIO Ratio Activated Partial 28.3 SEC Thromboplast Time Urine Color YELLOW YELLOW Urine Turbidity CLEAR HAZY Urine pH 5.5 5.5 Urine Specific [place] 1.017 1.019 Urine Protein NEG mg/dL TRACE mg/dL Urine Glucose (UA) NEG mg/dL NEG mg/dL Urine Ketones NEG mg/dL 40 mg/dL Urine Occult Blood NEG SMALL Urine Nitrite NEG NEG Urine Bilirubin NEG NEG Urine Urobilinogen LESS THAN 2.0 LESS THAN 2.0 MG/DL MG/DL Urine Leukocyte Esterase NEG LARGE Microscopic Urinalysis Comment CATH-CULT NOT CATH-CULTURE IND IND Sodium Level 140 MEQ/L Potassium Level 3.3 MEQ/L Chloride Level 104 MEQ/L Carbon Dioxide Level 25.5 MEQ/L Anion Gap 11 MEQ/L Blood Urea Nitrogen 11 MG/DL Creatinine 0.94 MG/DL Estimat Glomerular Filtration 68 ML/MIN Rate Random Glucose 115 MG/DL Calcium Level 8.7 MG/DL Phosphorus Level 2.4 MG/DL Magnesium Level 2.4 MG/DL Total Bilirubin 0.8 MG/DL Aspartate Amino Transf 35 U/L (AST/SGOT) Alanine Aminotransferase 49 U/L (ALT/SGPT) Alkaline Phosphatase 108 U/L Total Creatine Kinase 141 U/L Troponin I LESS THAN 0.02 NG/ML Total Protein 8.3 GM/DL Albumin 3.9 GM/DL Urine Opiates Screen NEG Acetaminophen Level LESS THAN 2.0 MCG/ML Urine Barbiturates Screen NEG Urine Amphetamines Screen NEG Urine Benzodiazepines Screen POS Urine Cocaine Screen POS Urine Cannabinoids Screen NEG Ethyl Alcohol Level LESS THAN 3 MG/DL Lactic Acid Level 1.6 mmol/L Salicylates Level 1.8 MG/DL Blood Gas Puncture Site RT BRACHIAL Blood Gas Patient Temperature 98.6 Blood Gas HCO3 25 mmol/L Blood Gas Base Excess 1.5 mmol/L Blood Gas Oxygen Saturation 94 % Arterial Blood pH 7.44 Arterial Blood Partial 38 mmHg Pressure CO2 Arterial Blood Partial 75 mmHG Pressure O2 Arterial Blood Oxygen Content 17.2 Vol % Arterial Blood 1.7 % Carboxyhemoglobin Arterial Blood Methemoglobin 0.4 % Blood Gas Hemoglobin 13.0 G/DL Oxygen Delivery Device VENTILATOR Blood Gas Ventilator Setting AC 14/500/5+ Blood Gas Inspired Oxygen 40 % Urine RBC 33 /hpf Urine WBC 21 /hpf Urine WBC Clumps RARE Urine Squamous Epithelial 2 /hpf Cells Urine Transitional Epithelial 1 /hpf Cells Urine Amorphous Sediment RARE Urine Mucus FEW /lpf Nasal Screen MRSA (PCR) MRSA NOT DETECTED Test 03/16/17 06:17 White Blood Count 4.6 TH/MM3 Red Blood Count 4.64 MIL/MM3 Hemoglobin 12.7 GM/DL Hematocrit 38.3 % Mean Corpuscular Volume 82.5 FL Mean Corpuscular Hemoglobin 27.4 PG Mean Corpuscular Hemoglobin 33.2 % Concent Red Cell Distribution Width 15.8 % Platelet Count 162 TH/MM3 Mean Platelet Volume 7.0 FL Neutrophils (%) (Auto) 69.4 % Lymphocytes (%) (Auto) 20.3 % Monocytes (%) (Auto) 9.5 % Eosinophils (%) (Auto) 0.4 % Basophils (%) (Auto) 0.4 % Neutrophils # (Auto) 3.2 TH/MM3 Lymphocytes # (Auto) 0.9 TH/MM3 Monocytes # (Auto) 0.4 TH/MM3 Eosinophils # (Auto) 0.0 TH/MM3 Basophils # (Auto) 0.0 TH/MM3 CBC Comment AUTO DIFF Differential Comment AUTO DIFF CONFIRMED Platelet Estimate NORMAL Platelet Morphology Comment NORMAL Red Cell Morphology Comment NORMAL Sodium Level 143 MEQ/L Potassium Level 3.6 MEQ/L Chloride Level 110 MEQ/L Carbon Dioxide Level 25.8 MEQ/L Anion Gap 7 MEQ/L Blood Urea Nitrogen 7 MG/DL Creatinine 0.74 MG/DL Estimat Glomerular Filtration 89 ML/MIN Rate Random Glucose 97 MG/DL Calcium Level 7.6 MG/DL Total Bilirubin 0.4 MG/DL Aspartate Amino Transf 21 U/L (AST/SGOT) Alanine Aminotransferase 35 U/L (ALT/SGPT) Alkaline Phosphatase 86 U/L Total Protein 6.3 GM/DL Albumin 3.0 GM/DL Imaging Last Impressions Head CT 03/15/171424 Signed Impressions: Service Date/Time: March 22:48 - CONCLUSION: Negative noncontrast CT brain. Kraig Dong MD Chest X-Ray 03/15/171424 Signed Impressions: Service Date/Time: March 14:37 - CONCLUSION: 1. Endotracheal tube in satisfactory position. Minimal basal atelectasis. Warren Mathew MD Objective Remarks GENERAL: Intubated sedated with Versed, Propofol SKIN: Skin warm/dry. Multiple track cantrell antecubital fossa HEAD: Atraumatic. Normocephalic. EYES: Pupils equal and round, reactive. No scleral icterus. ENT: Mucous membranes dry. Orotracheally intubated NECK: Trachea midline. No JVD. CARDIOVASCULAR: Regular rate and rhythm. No murmur appreciated. (Bedside US limited view, unable to rule out or rule in vegetation) RESPIRATORY: Clear to auscultation. Breath sounds equal bilaterally. GASTROINTESTINAL: Abdomen soft, non-tender, nondistended. Hepatic and splenic margins not palpable. Well healed surgical scars MUSCULOSKELETAL: No obvious deformities. No clubbing. No cyanosis. No edema. NEUROLOGICAL: Intubated heavily sedated with propofol and fentanyl. STEFANO. Moves upper and lower extremities equally A/P Assessment and Plan NEURO: Polysubstance abuse/IV drug use Cocaine and benzodiazepine overdose Acute encephalopathy Bipolar disorder - Propofol and Versed for sedation and ventilator synchrony - Precedex drip to facilitate with weaning trials. - Urine drug screen positive for cocaine and benzodiazepines -Consult psych once extubated resume Zyprexa and Methadone RESP: Acute respiratory failure - ACV 16/500/5 FiO2 40% - DuoNeb q6hr and PRN - Start SBT today and possibly extubation CV: Postural orthostatic tachycardia syndrome - Normal saline IV fluids 2L bolus and 75 ml per hour - Monitor HR and BP keep MAP>65mmHg GI: History of Colectomy for familial edematous polyposis - NPO. IV Protonix, start tube feeds today if remains intubated : - Monitor renal function, I/O's, electrolytes replacement per protocol. ID: - Monitor for infection. Follow up on blood and sputum culture HEME: - Monitor CBC, CMP ENDO: Hypokalemia - Electrolyte replacement per protocol PROPH: - Bilateral lower extremity SCDs. Lovenox 40 mg sq daily. IV Protonix 40 mg daily LINES: - Utilize peripheral IVs, level 3 Kayleigh Means MD Mar 16, 2017 09:38
--- NOTE | 2017-03-16 11:13 | EKG ---
Date Performed: 03/15/2017 Time Performed: 14:09:39 PTAGE: 36 years EKG: SINUS TACHYCARDIA RIGHT ATRIAL ENLARGEMENT LEFT ATRIAL ENLARGEMENT NONSPECIFIC ST & T-WAVE ABNORMALITY ABNORMAL ECG Since PREVIOUS TRACING , no significant change noted PREVIOUS TRACIN07/24/2016 11.57 DOCTOR: William Barrett Interpretating Date/Time 03/16/2017 11:12:47
[2017-03-16] MEDS ORDERED: METHADONE HCL 10 MG TAB PO SCH (14:15)
--- NOTE | 2017-03-16 14:49 | PD.PSY.CON ---
Provisional Diagnosis Admission Date Mar 15, 2017 at 16:18 History of Present Illness Service Psychiatry Consult Requested By Primary Care Physician Non-Staff Past Family Social History Coded Allergies: Ativan (Verified Allergy, Severe, sts memory loss, 11/09/16) Compazine (Verified Allergy, Severe, seizures, 11/09/16) Fentanyl (Verified Allergy, Severe, Tachycardia, SEIZURES, 11/09/16) Haldol (Verified Allergy, Severe, EPS, 11/09/16) Keflex (Verified Allergy, Severe, BLOODY STOOL, 11/09/16) Morphine (Verified Allergy, Severe, Seizures, 11/09/16) Phenergan (Verified Allergy, Severe, Tachycardia, 11/09/16) Latex (Verified Allergy, Intermediate, Itching, 11/09/16) Propofol (Verified Allergy, Mild, VOMITTING, 11/09/16) Buspar (Verified Allergy, Unknown, 11/09/16) Reported Medications Methadone 10 Mg [id number] Mg PO DAILY Ref 0 03/15/17 Mirtazapine (Remeron)15 Mg Tab7.5 Mg PO HS #15 TAB Ref 0 11/09/16 Olanzapine 5 Mg Tab5 Mg PO HS #30 TAB Ref 0 09/19/16 Zolpidem 10 Mg Tab10 Mg PO HS PRN (INSOMNIA) Ref 0 07/24/16 Alprazolam 2 Mg Tab2 Mg PO TID PRN (ANXIETY) Ref 0 06/22/16 Discontinued Reported Medications Methadone 40 Mg Tab50 Mg PO DAILY Ref 0 11/09/16 Discontinued Scripts Amoxicillin 500 Mg [id number] Mg PO TID #30 TAB Ref 0 Prov:Margy Wu MD 11/23/16 Current Medications Medications (Trade) Dose Ordered Sig/Nieves Route Start Time Stop Time Status Last Admin (NS Flush) 2 ml UNSCH PRN IV FLUSH 03/15/17 14:30 Naloxone HCl 0.4 mg 0.4 mg Q2M PRN IV PUSH 03/15/17 14:30 (NS 1000 ml Inj) 1,000 ml @ 75 mls/hr [id number] IV 03/15/17 16:48 03/16/17 06:01 (Peridex 0.12% Liq) 15 ml BID@08,20 MT 03/15/17 20:00 03/16/17 08:17 (Protonix Inj) 40 mg DAILY IV 03/16/17 09:00 03/16/17 08:16 (Lovenox Inj) 40 mg Q24H SQ 03/15/17 17:00 03/15/17 18:01 Miscellaneous Information 1 [id number] 03/15/17 17:00 (Chlorhexidine 2% Cloth) 3 pack Taper DAILY@04 TOP 03/16/17 04:00 03/12/18 03:59 03/16/17 04:00 Chlorhexidine Gluconate 3 pack 3 pack UNSCH PRN TOP 03/15/17 17:00 Potassium Chloride 100 ml @ 50 mls/hr Q2H PRN IV 03/15/17 17:00 (KCl 20 Meq Premix Inj) 100 ml @ 50 mls/hr Q2H PRN IV 03/15/17 17:00 Potassium Bicarb/ Potassium Chloride 50 meq 50 meq UNSCH PRN PO 03/15/17 17:00 Potassium Chloride 100 ml @ 25 mls/hr UNSCH PRN IV 03/15/17 17:00 Potassium Chloride 100 ml @ 50 mls/hr Q2H PRN IV 03/15/17 17:00 (Magnesium Sulfate Inj/NS Inj) 100 ml @ 50 mls/hr UNSCH PRN IV 03/15/17 17:00 Magnesium Oxide 800 mg 800 mg UNSCH PRN PO 03/15/17 17:00 (Magnesium Sulfate Inj/NS Inj) 100 ml @ 50 mls/hr UNSCH PRN IV 03/15/17 17:00 Potassium Phosphate 2000 mg 2,000 mg Q4H PRN PO 03/15/17 17:00 (Sodium Phosphate Inj/NS 250 ml Inj) 250 ml @ 42 mls/hr UNSCH PRN IV 03/15/17 17:00 Potassium Phosphate 2000 mg 2,000 mg UNSCH PRN PO/TUBE 03/15/17 17:00 Potassium Phosphate 30 mmol/ Sodium Chloride 260 ml @ 42 mls/hr UNSCH PRN IV 03/15/17 17:00 (Precedex Inj/NS Inj) 52 ml @ 0 mls/hr TITRATE IV 03/16/17 08:00 03/16/17 09:54 (ZyPREXA) 5 mg HS PO 03/16/17 21:00 (Dolophine) 10 mg Q12HR PO 03/16/17 14:15 03/16/17 14:31 Physical Exam Vital Signs Vital Signs Date Time Temp Pulse Resp B/P Pulse Ox O2 Delivery O2 Flow Rate FiO2 03/16/17 09:40 100 Nasal Cannula 4 03/16/17 08:25 40 03/16/17 06:00 79 03/16/17 04:00 98.5 19 128/87 Assessment & Plan Assessment & Plan Estimated LOS: days Jose Miguel Nascimento MD Mar 16, 2017 14:49
--- NOTE | 2017-03-16 14:59 | PD.PSY.CON ---
Provisional Diagnosis Admission Date Mar 15, 2017 at 16:18 History of Present Illness Service Psychiatry Consult Requested By Reason for Consult Patient does not meet criteria for involuntary psychiatric admission at this moment Primary Care Physician Non-Staff HPI Patient is a 36-year-old female with past medical history significant for IV drug use, substance abuse with opiates, benzodiazepines, methadone and cocaine, PTSD, familial adenomatous polyposis status post colectomy, history of cervical cancer, also orthostatic tachycardia syndrome. Patient was brought in by the EMS after being found unresponsive after suspected drug overdose. Patient received 2 mg total Narcan by EMS, and the 2 mg Narcan in the ED. She remained unresponsive was intubated for airway protection. Postintubation chest x-ray was unremarkable for acute infiltrates. Urine drug screen showed benzodiazepines and cocaine. I evaluated the patient in the ED. She is intubated on propofol and Versed extremities. There is evidence of IV drug use multiple tract cantrell antecubital fossa Past Family Social History Coded Allergies: Ativan (Verified Allergy, Severe, sts memory loss, 11/09/16) Compazine (Verified Allergy, Severe, seizures, 11/09/16) Fentanyl (Verified Allergy, Severe, Tachycardia, SEIZURES, 11/09/16) Haldol (Verified Allergy, Severe, EPS, 11/09/16) Keflex (Verified Allergy, Severe, BLOODY STOOL, 11/09/16) Morphine (Verified Allergy, Severe, Seizures, 11/09/16) Phenergan (Verified Allergy, Severe, Tachycardia, 11/09/16) Latex (Verified Allergy, Intermediate, Itching, 11/09/16) Propofol (Verified Allergy, Mild, VOMITTING, 11/09/16) Buspar (Verified Allergy, Unknown, 11/09/16) Reported Medications Methadone 10 Mg [id number] Mg PO DAILY Ref 0 03/15/17 Mirtazapine (Remeron)15 Mg Tab7.5 Mg PO HS #15 TAB Ref 0 11/09/16 Olanzapine 5 Mg Tab5 Mg PO HS #30 TAB Ref 0 09/19/16 Zolpidem 10 Mg Tab10 Mg PO HS PRN (INSOMNIA) Ref 0 07/24/16 Alprazolam 2 Mg Tab2 Mg PO TID PRN (ANXIETY) Ref 0 06/22/16 Discontinued Reported Medications Methadone 40 Mg Tab50 Mg PO DAILY Ref 0 11/09/16 Discontinued Scripts Amoxicillin 500 Mg [id number] Mg PO TID #30 TAB Ref 0 Prov:Margy Wu MD 11/23/16 Current Medications Medications (Trade) Dose Ordered Sig/Nieves Route Start Time Stop Time Status Last Admin (NS Flush) 2 ml UNSCH PRN IV FLUSH 03/15/17 14:30 Naloxone HCl 0.4 mg 0.4 mg Q2M PRN IV PUSH 03/15/17 14:30 (NS 1000 ml Inj) 1,000 ml @ 75 mls/hr [id number] IV 03/15/17 16:48 03/16/17 06:01 (Peridex 0.12% Liq) 15 ml BID@08,20 MT 03/15/17 20:00 03/16/17 08:17 (Protonix Inj) 40 mg DAILY IV 03/16/17 09:00 03/16/17 08:16 (Lovenox Inj) 40 mg Q24H SQ 03/15/17 17:00 03/15/17 18:01 Miscellaneous Information 1 [id number] XX 03/15/17 17:00 (Chlorhexidine 2% Cloth) 3 pack Taper DAILY@04 TOP 03/16/17 04:00 03/12/18 03:59 03/16/17 04:00 Chlorhexidine Gluconate 3 pack 3 pack UNSCH PRN TOP 03/15/17 17:00 Potassium Chloride 100 ml @ 50 mls/hr Q2H PRN IV 03/15/17 17:00 (KCl 20 Meq Premix Inj) 100 ml @ 50 mls/hr Q2H PRN IV 03/15/17 17:00 Potassium Bicarb/ Potassium Chloride 50 meq 50 meq UNSCH PRN PO 03/15/17 17:00 Potassium Chloride 100 ml @ 25 mls/hr UNSCH PRN IV 03/15/17 17:00 Potassium Chloride 100 ml @ 50 mls/hr Q2H PRN IV 03/15/17 17:00 (Magnesium Sulfate Inj/NS Inj) 100 ml @ 50 mls/hr UNSCH PRN IV 03/15/17 17:00 Magnesium Oxide 800 mg 800 mg UNSCH PRN PO 03/15/17 17:00 (Magnesium Sulfate Inj/NS Inj) 100 ml @ 50 mls/hr UNSCH PRN IV 03/15/17 17:00 Potassium Phosphate 2000 mg 2,000 mg Q4H PRN PO 03/15/17 17:00 (Sodium Phosphate Inj/NS 250 ml Inj) 250 ml @ 42 mls/hr UNSCH PRN IV 03/15/17 17:00 Potassium Phosphate 2000 mg 2,000 mg UNSCH PRN PO/TUBE 03/15/17 17:00 Potassium Phosphate 30 mmol/ Sodium Chloride 260 ml @ 42 mls/hr UNSCH PRN IV 03/15/17 17:00 (Precedex Inj/NS Inj) 52 ml @ 0 mls/hr TITRATE IV 03/16/17 08:00 03/16/17 09:54 (ZyPREXA) 5 mg HS PO 03/16/17 21:00 (Dolophine) 10 mg Q12HR PO 03/16/17 14:15 03/16/17 14:31 Physical Exam Vital Signs Vital Signs Date Time Temp Pulse Resp B/P Pulse Ox O2 Delivery O2 Flow Rate FiO2 03/16/17 09:40 100 Nasal Cannula 4 03/16/17 08:25 40 03/16/17 06:00 79 03/16/17 04:00 98.5 19 128/87 Lab Results Laboratory Tests Test 03/15/17 03/15/17 03/15/17 14:30 14:35 15:18 White Blood Count 4.8 Red Blood Count 5.24 Hemoglobin 14.3 Hematocrit 43.2 Mean Corpuscular Volume 82.5 Mean Corpuscular Hemoglobin 27.3 Mean Corpuscular Hemoglobin 33.1 Concent Red Cell Distribution Width 15.1 Platelet Count 199 Mean Platelet Volume 7.0 Neutrophils (%) (Auto) 53.2 Lymphocytes (%) (Auto) 34.3 Monocytes (%) (Auto) 11.1 Eosinophils (%) (Auto) 0.7 Basophils (%) (Auto) 0.7 Neutrophils # (Auto) 2.6 Lymphocytes # (Auto) 1.6 Monocytes # (Auto) 0.5 Eosinophils # (Auto) 0.0 Basophils # (Auto) 0.0 CBC Comment AUTO DIFF Differential Comment AUTO DIFF CONFIRMED Prothrombin Time 10.9 Prothromb Time International 1.0 Ratio Activated Partial 28.3 Thromboplast Time Urine Color YELLOW Urine Turbidity CLEAR Urine pH 5.5 Urine Specific [place] 1.017 Urine Protein NEG Urine Glucose (UA) NEG Urine Ketones NEG Urine Occult Blood NEG Urine Nitrite NEG Urine Bilirubin NEG Urine Urobilinogen LESS THAN 2.0 Urine Leukocyte Esterase NEG Microscopic Urinalysis Comment CATH-CULT NOT IND Sodium Level 140 Potassium Level 3.3 Chloride Level 104 Carbon Dioxide Level 25.5 Anion Gap 11 Blood Urea Nitrogen 11 Creatinine 0.94 Estimat Glomerular Filtration 68 Rate Random Glucose 115 Calcium Level 8.7 Total Bilirubin 0.8 Aspartate Amino Transf 35 (AST/SGOT) Alanine Aminotransferase 49 (ALT/SGPT) Alkaline Phosphatase 108 Total Creatine Kinase 141 Troponin I LESS THAN 0.02 Total Protein 8.3 Albumin 3.9 Urine Opiates Screen NEG Acetaminophen Level LESS THAN 2.0 Urine Barbiturates Screen NEG Urine Amphetamines Screen NEG Urine Benzodiazepines Screen POS Urine Cocaine Screen POS Urine Cannabinoids Screen NEG Ethyl Alcohol Level LESS THAN 3 Lactic Acid Level 1.6 Salicylates Level 1.8 Blood Gas Puncture Site RT BRACHIAL Blood Gas Patient Temperature 98.6 Blood Gas HCO3 25 Blood Gas Base Excess 1.5 Blood Gas Oxygen Saturation 94 Arterial Blood pH 7.44 Arterial Blood Partial 38 Pressure CO2 Arterial Blood Partial 75 Pressure O2 Arterial Blood Oxygen Content 17.2 Arterial Blood 1.7 Carboxyhemoglobin Arterial Blood Methemoglobin 0.4 Blood Gas Hemoglobin 13.0 Oxygen Delivery Device VENTILATOR Blood Gas Ventilator Setting AC 14/500/5+ Blood Gas Inspired Oxygen 40 Result Diagram: 03/15/17 1430 03/15/17 1430 Mental Status Examination Appearance woman, [facility], age appearing, in distress, superficially cooperative Speech: Hesitant, Slow Orientation: x3 Memory: Unremarkable Thought Process: Logical Thought Content: Unremarkable Hallucination Type: None Attention and Concentration: Good Suicidal Ideation: No Previous Suicide Attempts: Yes Homicidal Ideation: No Previous Homicide Attempts: No Affect: Irritable Mood: Angry Motor Activity: Normal gait Assessment & Plan Problem List: (1) Substance induced mood disorder Assessment & Plan: On psychiatric evaluation today patient denies depressive symptoms at this moment, she denies suicidal and homicidal ideation, she denies visual and auditory hallucinations. She reports distress, pain, sweating, lacrimation, nausea from active opiate withdrawal. Patient has an extensive history of impulsive, aggressive, drug seeking, manipulative behavior, and polysubstance dependence including opiates, benzodiazepines cocaine and marihuana. Patient clarifies that recent overdose was not with suicidal intentions, but the result of mixing high doses of prescribed methadone with her psychotropics. Patient has history of similar overdoses in the past, and history of borderline personality disorder. Patient claims that she is in methadone 170 mg daily, no confirmed. She is on olanzapine 10 mg, Remeron 15 mg, Xanax 2 mg 4 times per day, Ambien 10 mg, as per patient, but not confirmed with Dr. Young. My recommendation would be restart Remeron 15 mg, olanzapine 10 mg at bedtime, but hold Xanax and place the patient in CINJ protocol. Treatment opiate withdrawal symptomatically until methadone dose is confirmed with her medical clinic. Can give methadone 20-30 mg daily. Clonidine 0.2 mg every 8 hours for autonomic instability and anxiety, for lacrimation and teagan Benadryl 50 mg, ibuprofen 400 mf for pain. Due to her history of substance abuse, try to avoid narcotics as much as possible. Since patient is oriented 3, fully aware and consciousness of the reason of her hospitalization, with with an appropriate appreciation and understanding of current medical problems, patient has full decision-making capacity to participate in her discharge plan. Extensive support, psychoeducation and motivation provided. Will continued outpatient psychiatric care with Dr. Young. ICD Code: F19.94 (2) Borderline personality disorder ICD Code: F60.3 Assessment & Plan Estimated LOS: Jose Miguel Nascimento MD Mar 16, 2017 14:59
[2017-03-16] MEDS ORDERED: PILL SPLITTER OTHER PRN (15:15)
[2017-03-16] MEDS ORDERED: OLANZapine 10 MG TAB PO SCH (21:00)
[2017-03-16] MEDS ORDERED: MIRTAZAPINE 15 MG TAB PO SCH (21:00)
[2017-03-16] MEDS ORDERED: OLANZapine 5 MG TAB PO SCH (21:00)
[2017-03-17] MEDS ORDERED: DOXY100C PO (11:22)
== END 2017-03-16 16:10 | disposition left against medical advice (07) | DRG 917 ==
LOC: NEPE 13:54 → NEDA 16:18 → NEDH 20:18 → HIMN 23:00
PROVIDERS: ADMIT Internal Medicine; ATTEND Internal Medicine
PROC: 0BH17EZ Insertion of Endotracheal Airway into Trachea, Via Natural or Artificial Opening (ICD-10-PCS; principal; 2017-03-15)
PROC: 5A1935Z Respiratory Ventilation, Less than 24 Consecutive Hours (ICD-10-PCS; 2017-03-15)
DX: T42.4X1A Poisoning by benzodiazepines, accidental (unintentional), initial encounter (principal); J96.00 Acute respiratory failure, unspecified whether with hypoxia or hypercapnia; G93.40 Encephalopathy, unspecified; T40.5X1A Poisoning by cocaine, accidental (unintentional), initial encounter; E87.6 Hypokalemia; I49.8 Other specified cardiac arrhythmias; F60.3 Borderline personality disorder; F32.9 Major depressive disorder, single episode, unspecified; F41.9 Anxiety disorder, unspecified; Z85.41 Personal history of malignant neoplasm of cervix uteri
CPT/HCPCS: 31500; 36600; 51702; 70450; 71010; 80053; 80307; 81001; 82550; 82805; 83605; 83735; 84100; 84484; 84703; 85025; 85610; 85730; 87070; 87086; 87205; 87641; 93005; 94002; 94003; 94664; 96365; 96374; C9113; J0330; J1650; J2250; J2310; J7030

== ENCOUNTER 2017-03-17 08:15 | Emergency (ER) | payer MEDICAID ==
[~2017-03-17 08:15] MED LIST changes: -AMOX500T PO; +METH10TA PO; -METH40TA PO
[2017-03-17 08:17] VITALS: BP 182/93; PULSE 101; RESP 17; TEMP 99.8; O2SAT 95
--- NOTE | 2017-03-17 08:48 | PD ---
HPI Chief Complaint: Medical Clearance Time Seen by Provider: 08:35 Travel History International Travel<30 days: No Contact w/Intl Traveler<30days: No Traveled to known affect area: No History of Present Illness HPI So 36-year-old woman who presents to the emergency department complaining of opiate withdrawal symptoms. She was admitted for an overdose a couple days ago. She was in the ICU. She left yesterday AMA. She went to her methadone clinic today with her mom to be redosed. She did not have a copy of her medications and so they would not redosed her. It closes at 9:30. She started have some withdrawal symptoms. She also has had a full colectomy and so gets dehydrated easily with withdrawal symptoms. History Past Medical History Narrative Medical IV drug use with history of benzodiazepine, methadone, cocaine abuse PTSD Familial adenomatous polyposis status post colectomy History of cervical cancer History of orthostatic tachycardia syndrome : 12 Para: 4 Social History Alcohol Use: No Tobacco Use: Yes (1 PPD) Allergies-Medications (Allergen,Severity, Reaction): Coded Allergies: Ativan (Verified Allergy, Severe, sts memory loss, 03/17/17) Compazine (Verified Allergy, Severe, seizures, 03/17/17) Fentanyl (Verified Allergy, Severe, Tachycardia, SEIZURES, 03/17/17) Haldol (Verified Allergy, Severe, EPS, 03/17/17) Keflex (Verified Allergy, Severe, BLOODY STOOL, 03/17/17) Morphine (Verified Allergy, Severe, Seizures, 03/17/17) Phenergan (Verified Allergy, Severe, Tachycardia, 03/17/17) Latex (Verified Allergy, Intermediate, Itching, 03/17/17) Buspar (Verified Allergy, Unknown, 03/17/17) Reported Meds & Prescriptions Reported Meds & Active Scripts Active Reported Methadone (Methadone HCl) 10 Mg Tab 170 Mg PO DAILY Remeron (Mirtazapine) 15 Mg Tab 7.5 Mg PO HS Olanzapine 5 Mg Tab 5 Mg PO HS Zolpidem (Zolpidem Tartrate) 10 Mg Tab 10 Mg PO HS PRN Alprazolam 2 Mg Tab 2 Mg PO TID PRN Review of Systems Except as stated in HPI: all other systems reviewed are Neg Physical Exam Narrative GENERAL: 36 year-old woman, sad appearing, nontoxic. SKIN: Focused skin assessment warm/dry. CARDIOVASCULAR: Warm and well perfused. RESPIRATORY: Normal rate and effort. GASTROINTESTINAL: Abdomen flat and soft. MUSCULOSKELETAL: No obvious deformities. No edema. NEUROLOGICAL: Awake and alert. No obvious cranial nerve deficits. Motor grossly within normal limits. Normal speech. PSYCHIATRIC: Appropriate mood and affect; insight and judgment normal. Data Data Last Documented VS Vital Signs Date Time Temp Pulse Resp B/P Pulse Ox O2 Delivery O2 Flow Rate FiO2 03/17/17 08:17 99.8 101 17 182/93 95 Orders Ondansetron Odt (Zofran Odt) (03/17/17 09:00) [facility] Medical Decision Making Medical Screen Exam Complete: Yes Emergency Medical Condition: Yes Differential Diagnosis Opiate withdrawal, dehydration, weakness, other Narrative Course Medical decision making Is a 36-year-old woman presents emergency Department with opiate withdrawal symptoms and the setting of not taking her methadone clinic. What she really needs is just a copy of when she was last treated with methadone so that her methadone clinic and redosed her. She last had 10 mg of methadone yesterday at 2:30 PM. I spoke to the methadone nurse, gave them copies of their MAR. They will go immediately to the methadone clinic now. Diagnosis Primary Impression: Opioid withdrawal Additional Instructions: Follow-up with methadone clinic immediately. Return to the emergency department for any new or worsening symptoms. Med/Other Pt SpecificInfo: No Change to Meds Disposition: 01 DISCHARGE HOME Condition: Stable Tyson Medina MD Mar 17, 2017 08:48
[2017-03-17] MEDS ORDERED: ONDANSETRON ODT 4 MG TAB PO ONE (09:00)
[2017-03-17] MEDS ORDERED: DOXY100C PO (11:22)
== END 2017-03-17 08:56 | disposition home or self-care (01) ==
LOC: NEPE 08:15
DX: F11.23 Opioid dependence with withdrawal (principal); F14.10 Cocaine abuse, uncomplicated; F19.10 Other psychoactive substance abuse, uncomplicated; F43.10 Post-traumatic stress disorder, unspecified; F17.200 Nicotine dependence, unspecified, uncomplicated; Z79.899 Other long term (current) drug therapy; Z88.5 Allergy status to narcotic agent; Z88.8 Allergy status to other drugs, medicaments and biological substances
CPT/HCPCS: 99283

== ENCOUNTER 2017-03-17 10:35 | Emergency (ER) | payer MEDICAID ==
[~2017-03-17] VITALS: Ht 175.3 cm; Wt 61.0 kg
[2017-03-17 10:45] VITALS: BP 128/75; PULSE 72; RESP 16; TEMP 98.2; O2SAT 97
[2017-03-17] MEDS ORDERED: DOXY100C PO (11:22)
--- NOTE | 2017-03-17 11:24 | PD ---
HPI Chief Complaint: Respiratory Symptoms Time Seen by Provider: 11:08 Travel History International Travel<30 days: No Contact w/Intl Traveler<30days: No Traveled to known affect area: No History of Present Illness HPI The patient was seen and examined in the presence of the nurse. She complains of coughing up phlegm and congestion. Duration is one day. She was seen in the ER this morning already for narcotic withdrawal symptoms and has since been to the methadone clinic and been dosed with methadone. She reports that problem is improved. sHe is here for respiratory issues. Symptoms severity at this time is mild PFSH Past Medical History Hx Anticoagulant Therapy: Yes (81 MG. ASA DAILY) ADD: Yes ADHD: Yes Anemia: Yes Arthritis: No Asthma: No Autoimmune Disease: No Blood Disorders: No Bipolar Disorder: Yes Anxiety: Yes Depression: Yes Heart Rhythm Problems: Yes (TACHYCARDIA) Cancer: Yes (PRECANCEROUS POLYPS) Cardiac Catheterization: Yes Cardiovascular Problems: Yes (SINOATRIAL NODE DYSFUNCTION, TRICUSPID VALVE D/O) High Cholesterol: No Chemotherapy: No Chest Pain: No Congestive Heart Failure: No COPD: No Cerebrovascular Accident: No Diabetes: Yes Diminished Hearing: No Endocrine: No Gastrointestinal Disorders: Yes (COLECTOMY DUE TO Familial adenomatous polyposis ) GERD: No Genitourinary: Yes Headaches: No Hepatitis: No Hiatal Hernia: No Hypertension: No Immune Disorder: No Musculoskeletal: No Psychiatric: Yes Reproductive: No Respiratory: Yes (repiratory failure d/t overdose) Immunizations Current: Yes Myocardial Infarction: No Radiation Therapy: No Seizures: No Sleep Apnea: No Ulcer: No ?: Not LMP: 03/17/2017 : 12 Para: 4 Miscarriage: 8 : 0 Past Surgical History Abdominal Surgery: Yes (COLECTOMY,APPENDECTOMY, Ileorectal anastomosis) AICD: No Appendectomy: Yes (1994) Arteriovenous Shunt: No Cardiac Surgery: No Ear Surgery: No Endocrine Surgery: No Eye Surgery: No Genitourinary Surgery: No Gynecologic Surgery: No Insulin Pump: No Oral Surgery: No Pacemaker: No Thoracic Surgery: No Other Surgery: Yes (TIBULO VILLOUS MASS REMOVED 04/2013) Social History Alcohol Use: No Tobacco Use: Yes (1 PPD) Substance Use: Yes (OPIATES, BENZOS, METHADONE) Allergies-Medications (Allergen,Severity, Reaction): Coded Allergies: Ativan (Verified Allergy, Severe, sts memory loss, 03/17/17) Compazine (Verified Allergy, Severe, seizures, 03/17/17) Fentanyl (Verified Allergy, Severe, Tachycardia, SEIZURES, 03/17/17) Haldol (Verified Allergy, Severe, EPS, 03/17/17) Keflex (Verified Allergy, Severe, BLOODY STOOL, 03/17/17) Morphine (Verified Allergy, Severe, Seizures, 03/17/17) Phenergan (Verified Allergy, Severe, Tachycardia, 03/17/17) Latex (Verified Allergy, Intermediate, Itching, 03/17/17) Buspar (Verified Allergy, Unknown, 03/17/17) Reported Meds & Prescriptions Reported Meds & Active Scripts Active Doxycycline Hyclate 100 Mg Cap 100 Mg PO BID Reported Methadone (Methadone HCl) 10 Mg Tab 170 Mg PO DAILY Remeron (Mirtazapine) 15 Mg Tab 7.5 Mg PO HS Olanzapine 5 Mg Tab 5 Mg PO HS Zolpidem (Zolpidem Tartrate) 10 Mg Tab 10 Mg PO HS PRN Alprazolam 2 Mg Tab 2 Mg PO TID PRN Review of Systems General / Constitutional: No: Fever HENT: No: Headaches Respiratory: Positive: Cough Physical Exam Narrative RESPIRATORY: Respiratory effort unlabored, no retractions or use of accessory muscles. Breath sounds are clear and symmetric. CARDIOVASCULAR: Regular rate and rhythm without murmur. Extremities showed no edema or varicosities. GASTROINTESTINAL: Abdomen soft, non-tender, nondistended. Positive bowel sounds. No hepato-splenomegaly, or palpable masses. No guarding. Throat clear NECK: Symmetrical appearance, midline trachea. No mass or crepitus. Thyroid without enlargement, tenderness, or mass. Data Data Last Documented VS Vital Signs Date Time Temp Pulse Resp B/P Pulse Ox O2 Delivery O2 Flow Rate FiO2 03/17/17 10:45 98.2 72 16 128/75 97 MDM Medical Decision Making Medical Screen Exam Complete: Yes Emergency Medical Condition: Yes Medical Record Reviewed: Yes Differential Diagnosis Bronchitis, pneumonia, pharyngitis Narrative Course I have reviewed the patient's electronic medical record. Patient was recently intubated and now coughing up phlegm To treat her doxycycline No objective findings The patient was advised to follow up with their physician and return if they worsen. Diagnosis Primary Impression: Bronchitis Additional Instructions: The patient was advised to follow up with their physician and return if they worsen. Med/Other Pt SpecificInfo: Prescription(s) given Scripts Doxycycline Hyclate 100 Mg [id number] Mg PO BID #14 CAP Ref 0 Prov:Xavi Castro MD 03/17/17 Disposition: 01 DISCHARGE HOME Condition: Stable Xavi Castro MD Mar 17, 2017 11:24
== END 2017-03-17 11:42 | disposition home or self-care (01) ==
LOC: PHED 10:35
DX: J40 Bronchitis, not specified as acute or chronic (principal); F17.200 Nicotine dependence, unspecified, uncomplicated
CPT/HCPCS: 99283

== ENCOUNTER 2017-06-26 09:50 | Emergency (ER) | payer MEDICAID ==
[~2017-06-26 09:50] MED LIST changes: +DOXY100C PO
[2017-06-26] MEDS ORDERED: SODIUM CHLOR 0.9% 1000 ML INJ 1,000 ML IV ONE ×2 (09:59→12:45)
[2017-06-26] MEDS ORDERED: SODIUM CHLORIDE 0.9% FLUSH 10 ML FLUSH IVF PRN (10:00)
[2017-06-26 10:04] VITALS: BP 102/56; PULSE 58; RESP 18; TEMP 98.6; O2SAT 97
[2017-06-26 10:10] VITALS: BP 98/55; PULSE 58; RESP 18; O2SAT 98
--- NOTE | 2017-06-26 10:24 | PD ---
HPI Chief Complaint: Neuro Symptoms/ Deficits Time Seen by Provider: 09:59 Travel History International Travel<30 days: No Contact w/Intl Traveler<30days: No Traveled to known affect area: No History of Present Illness HPI 36 y/o female presents with her mother was concerned of altered mental status. She went to [facility] yesterday when she was acting like this, and her electrolytes were normal and they determined that it was because she had her methadone on an empty stomach given she was prepping for a scope with her history of polyps. Her mother states that she had her methadone again today and that she has been with her since she was discharged from the hospital yesterday. She states that she has access to Xanax in her room but the patient had denied taking any to her. In the room she states she took a Xanax this morning but cannot tell me the time she is a very poor historian. PFSH Past Medical History Narrative Medical By mother and records Hx Anticoagulant Therapy: Yes (81 MG. 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 ) GERD: No Genitourinary: Yes Headaches: No Hepatitis: No Hiatal Hernia: No Hypertension: No Immune Disorder: No Musculoskeletal: No Psychiatric: Yes Reproductive: No Respiratory: Yes (repiratory failure d/t overdose) Immunizations Current: Yes Myocardial Infarction: No Radiation Therapy: No Seizures: No Sleep Apnea: No Ulcer: No Influenza Vaccination: No ?: Not LMP: 06/2017 : 12 Para: 4 Miscarriage: 8 : 0 Past Surgical History Narrative Surgical By mother and records Abdominal Surgery: Yes (COLECTOMY,APPENDECTOMY, Ileorectal anastomosis) AICD: No Appendectomy: Yes (1994) Arteriovenous Shunt: No Cardiac Surgery: No Ear Surgery: No Endocrine Surgery: No Eye Surgery: No Genitourinary Surgery: No Gynecologic Surgery: No Insulin Pump: No Oral Surgery: No Pacemaker: No Thoracic Surgery: No Other Surgery: Yes (TIBULO VILLOUS MASS REMOVED 04/2013) Social History Narrative Social History By mother and records Alcohol Use: No Tobacco Use: Yes (1 PPD) Substance Use: Yes (OPIATES, BENZOS, METHADONE) Allergies-Medications (Allergen,Severity, Reaction): Coded Allergies: cephalexin (Unverified Allergy, Severe, BLOODY STOOL, 06/26/17) fentanyl (Unverified Allergy, Severe, Tachycardia, SEIZURES, 06/26/17) haloperidol (Unverified Allergy, Severe, EPS, 06/26/17) lorazepam (Unverified Allergy, Severe, sts memory loss, 06/26/17) morphine (Unverified Allergy, Severe, Seizures, 06/26/17) prochlorperazine (Unverified Allergy, Severe, seizures, 06/26/17) promethazine (Unverified Allergy, Severe, Tachycardia, 06/26/17) latex (Unverified Allergy, Intermediate, Itching, 06/26/17) buspirone (Unverified Allergy, Unknown, 06/26/17) Reported Meds & Prescriptions Reported Meds & Active Scripts Active Macrobid (Nitrofurantoin Monoh/Nitrofur Macro) 100 Mg Cap 100 Mg PO BID 7 Days Reported Methadone (Methadone HCl) 10 Mg Tab 140 Mg PO DAILY Remeron (Mirtazapine) 15 Mg Tab 7.5 Mg PO HS Olanzapine 5 Mg Tab 5 Mg PO HS Zolpidem (Zolpidem Tartrate) 10 Mg Tab 10 Mg PO HS PRN Alprazolam 2 Mg Tab 2 Mg PO TID PRN Review of Systems Except as stated in HPI: all other systems reviewed are Neg Physical Exam Narrative GENERAL: Well-nourished, well-developed patient. SKIN: Warm and dry. HEAD: Normocephalic and atraumatic. EYES: No injection or drainage. Pupils pinpoint bilaterally ENT: No nasal drainage noted. NECK: Supple, trachea midline. No meningeal signs CARDIOVASCULAR: Regular rate and rhythm RESPIRATORY: Breath sounds equal bilaterally at apices. No accessory muscle use. GASTROINTESTINAL: Abdomen soft, non-tender, nondistended. EXTREMITIES: No edema. NEUROLOGICAL: Drowsy but awakens to voice. Moves all extremities. Slurred speech. Data Data Last Documented VS Vital Signs Date Time Temp Pulse Resp B/P (MAP) Pulse Ox O2 Delivery O2 Flow Rate FiO2 06/26/17 13:39 55 18 132/61 (84) 97 06/26/17 12:52 Room Air 06/26/17 10:04 98.6 Orders Orders Electrocardiogram (06/26/17 09:59) Complete Blood Count With Diff (06/26/17 09:59) Comprehensive Metabolic Panel (06/26/17 09:59) Urinalysis - C+S If Indicated (06/26/17 09:59) Ct Brain W/O Iv Contrast(Rout) (06/26/17 09:59) Iv Access Insert/Monitor (06/26/17 09:59) Ecg Monitoring (06/26/17 09:59) Oximetry (06/26/17 09:59) Sodium Chloride 0.9% Flush (Ns Flush) (06/26/17 10:00) Sodium Chlor 0.9% 1000 Ml Inj (Ns 1000 M (06/26/17 09:59) Drug Screen, Random Urine (06/26/17 09:59) Alcohol (Ethanol) (06/26/17 09:59) Salicylates (Aspirin) (06/26/17 09:59) Tylenol (Acetaminophen) (06/26/17 09:59) Ed Urine Pregnancytest Poc (06/26/17 09:59) Urine Culture (06/26/17 10:45) Sodium Chlor 0.9% 1000 Ml Inj (Ns 1000 M (06/26/17 12:45) Lactic Acid (06/26/17 12:41) Ed Discharge Order (06/26/17 13:58) Labs Laboratory Tests Test 06/26/17 10:28 06/26/17 10:45 06/26/17 12:45 White Blood Count 3.1 TH/MM3 Red Blood Count 4.21 MIL/MM3 Hemoglobin 11.5 GM/DL Hematocrit 34.8 % Mean Corpuscular Volume 82.7 FL Mean Corpuscular Hemoglobin 27.4 PG Mean Corpuscular Hemoglobin Concent 33.1 % Red Cell Distribution Width 13.4 % Platelet Count 198 TH/MM3 Mean Platelet Volume 7.3 FL Neutrophils (%) (Auto) 44.8 % Lymphocytes (%) (Auto) 41.5 % Monocytes (%) (Auto) 10.6 % Eosinophils (%) (Auto) 1.0 % Basophils (%) (Auto) 2.1 % Neutrophils # (Auto) 1.4 TH/MM3 Lymphocytes # (Auto) 1.3 TH/MM3 Monocytes # (Auto) 0.3 TH/MM3 Eosinophils # (Auto) 0.0 TH/MM3 Basophils # (Auto) 0.1 TH/MM3 CBC Comment DIFF FINAL Differential Comment Blood Urea Nitrogen 12 MG/DL Creatinine 0.74 MG/DL Random Glucose 102 MG/DL Total Protein 6.8 GM/DL Albumin 3.2 GM/DL Calcium Level 8.5 MG/DL Alkaline Phosphatase 78 U/L Aspartate Amino Transf (AST/SGOT) 56 U/L Alanine Aminotransferase (ALT/SGPT) 102 U/L Total Bilirubin 0.3 MG/DL Sodium Level 138 MEQ/L Potassium Level 4.3 MEQ/L Chloride Level 104 MEQ/L Carbon Dioxide Level 26.7 MEQ/L Anion Gap 7 MEQ/L Estimat Glomerular Filtration Rate 89 ML/MIN Salicylates Level 2.4 MG/DL Acetaminophen Level LESS THAN 2.0 MCG/ML Ethyl Alcohol Level LESS THAN 3 MG/DL Urine Collection Type CLEAN CATCH Urine Color STRAW Urine Turbidity SLIGHT Urine pH 5.5 Urine Specific [place] 1.012 Urine Protein NEG mg/dL Urine Glucose (UA) NEG mg/dL Urine Ketones NEG mg/dL Urine Occult Blood SMALL Urine Nitrite NEG Urine Bilirubin NEG Urine Leukocyte Esterase NEG Urine RBC 4-9 /hpf Urine WBC 3-5 /hpf Urine WBC Clumps OCC Urine Squamous Epithelial Cells > 8 /hpf Urine Amorphous Sediment MOD Urine Bacteria MOD /hpf Microscopic Urinalysis Comment CULTURE INDICATED Urine Collection Time 1045 Urine Opiates Screen NEG Urine Barbiturates Screen NEG Urine Amphetamines Screen NEG Urine Benzodiazepines Screen POS Urine Cocaine Screen NEG Urine Cannabinoids Screen NEG Lactic Acid Level 0.5 mmol/L MDM Medical Decision Making Medical Screen Exam Complete: Yes Emergency Medical Condition: Yes Medical Record Reviewed: Yes (past history confirmed) Interpretation(s) EKG is sinus bradycardia at 53, no STEMI criteria CBC & BMP Diagram 06/26/17 10:28 Total Protein 6.8, Albumin 3.2 L, Calcium Level 8.5, Alkaline Phosphatase 78, Aspartate Amino Transf (AST/SGOT) 56 H, Alanine Aminotransferase (ALT/SGPT) 102 H, Total Bilirubin 0.3 Last [address] 06/26/17 0959 Signed Impressions: Service Date/Time: Monday, June 26, 2017 10:53 - CONCLUSION: Negative noncontrast head CT. Alden Stewart MD Differential Diagnosis Ingestion, coingestion, intracranial, electrolyte Narrative Course Will check blood work, CT brain and dose with IV fluids and reevaluate labs wnl, ct brain no acute, bp low, will check lactic and dose with ivf bp improved, lactic is normal, ua with possible signs of infection patient denies symptoms but given poor historian Will treat. Lengthy discussion with mother and patient and nurse was at bedside, patient denies suicidal or homicidal ideations, patient is now alert and oriented and with clear speech. She likely took too much of her home medication and combined her Xanax and methadone that led to her symptoms. She is not wanting to talk with our psychiatry team and has no thomas act criteria currently. Mother will watch over patient and discuss with primary and given [place] resources, before patient given Macrobid prescription she said that she could have it. Nurse provided her prescription then she says she is allergic to it and sometimes it makes her face flush. I talked with patient again and she states that she doesn't get a rash, difficulty breathing or have any other concurrent complaints other than sometimes her face gets flush. Given the medications that she is on and she states she can't really have anything else but can't specify what else this appears to be the current best option. Diagnosis Primary Impression: Altered mental status Qualified Codes: R41.82 - Altered mental status, unspecified Additional Impression: UTI (urinary tract infection) Qualified Codes: N39.0 - Urinary tract infection, site not specified Patient Instructions: General Instructions Additional Instructions: don't take xanax when you take your methadone in the morning, follow with your primary and psychiatrist tommorrow, return as needed Med/Other Pt SpecificInfo: Existing Med Changed Scripts Nitrofurantoin Monohydrate Macrocrystals (Macrobid) 100 Mg Cap 100 MG PO BID for Infection for 7 Days, #14 CAP 0 Refills Prov: Kenyatta Llamas MD 06/26/17 Disposition: 01 DISCHARGE HOME Condition: Stable Kenyatta Llamas MD Jun 26, 2017 10:24
[2017-06-26 10:36] LABS: AUTOMATED NEUTROPHIL # 1.4 TH/MM3 (1.8-7.7); BASOPHIL # 0.1 TH/MM3 (0-0.2); BASOPHIL % 2.1 % (0.0-2.0); HEMATOCRIT 34.8 % (35.0-46.0); HEMO FLAGS DIFF FINAL; LYMPH % 41.5 % (9.0-44.0); LYMPHOCYTE # 1.3 TH/MM3 (1.0-4.8); MEAN CELL VOLUME 82.7 FL (80.0-100.0); MEAN CORPUSCULAR HEMOGLOBIN 27.4 PG (27.0-34.0); MEAN CORPUSCULAR HGB CONC 33.1 % (32.0-36.0); MONO % 10.6 % (0.0-8.0); NEUT % 44.8 % (16.0-70.0); PLATELET COUNT 198 TH/MM3 (150-450); RED BLOOD COUNT 4.21 MIL/MM3 (4.00-5.30); RED CELL DISTRIBUTION WIDTH 13.4 % (11.6-17.2); WHITE BLOOD COUNT 3.1 TH/MM3 (4.0-11.0)
[2017-06-26 10:44] LABS: CHLORIDE 104 MEQ/L (98-107); POTASSIUM 4.3 MEQ/L (3.5-5.1); SODIUM (NA) 138 MEQ/L (136-145)
[2017-06-26 10:48] LABS: ANION GAP 7 MEQ/L (5-15); BICARBONATE 26.7 MEQ/L (21.0-32.0); BLOOD UREA NITROGEN 12 MG/DL (7-18)
[2017-06-26 10:51] LABS: ALCOHOL LESS THAN 3 MG/DL (0-5); ALT (GPT) 102 U/L (10-53); AST (GOT) 56 U/L (15-37); GLOMERULAR FILTRATION RATE 89 ML/MIN (>89)
[2017-06-26 10:52] LABS: BLOOD, URINE SMALL (NEG); GLUCOSE,URINE NEG (NEG); KETONE, URINE NEG (NEG); NITRITE,URINE NEG (NEG); PH, URINE 5.5 (5.0-8.5)
[2017-06-26 10:52] LABS: TOTAL BILIRUBIN ADULT 0.3 MG/DL (0.2-1.0)
[2017-06-26 10:54] LABS: ALKALINE PHOSPHATASE 78 U/L (45-117)
[2017-06-26 10:58] LABS: METHOD OF COLLECTION CLEAN CATCH; URINE COLOR STRAW (YELLW/STRAW)
[2017-06-26 10:59] LABS: BACTERIA, URINE MOD /hpf; COMMENT (UR) CULTURE INDICATED; COMMENT2 (UR) MUCOUS PRESENT; CULTURE IF INDICATED CULTURE INDICATED; SQUAMOUS EPITHELIAL CELL URINE > 8 /hpf (0-5)
--- NOTE | 2017-06-26 11:07 | RADRPT ---
EXAM DATE/TIME: 06/26/2017 10:53 [facility] COMPARISON: CT BRAIN W/O CONTRAST, March 15, 2017, 22:48. INDICATIONS : Lethargic and memory loss. RADIATION DOSE: 59.41 CTDIvol (mGy) MEDICAL HISTORY : Anticoagulant therapy. SURGICAL HISTORY : Appendectomy. Colectomy. ENCOUNTER: Initial ACUITY: 1 day PAIN SCALE: 0/10 LOCATION: cranial TECHNIQUE: Multiple contiguous axial images were obtained of the head. Using automated exposure control and adj ustment of the mA and/or kV according to patient size, radiation dose was kept as low as reasonably a chievable to obtain optimal diagnostic quality images. DICOM format image data is available electro nically for review and comparison. FINDINGS: CEREBRUM: The ventricles are normal. No evidence of midline shift, mass lesion, hemorrhage or acute infarction . No extra-axial fluid collections are seen. POSTERIOR FOSSA: The cerebellum and brainstem are intact. The 4th ventricle is midline. The cerebellopontine angle i s unremarkable. EXTRACRANIAL: Visualized sinuses are clear. SKULL: The calvaria is intact. No evidence of skull fracture. CONCLUSION: Negative noncontrast head CT. Alden Stewart MD on June 26, 2017 at 11:03 Board Certified Radiologist. This report was verified electronically.
[2017-06-26 11:10] VITALS: BP 100/59; PULSE 48; RESP 18; O2SAT 97
[2017-06-26 12:15] VITALS: BP 93/51; PULSE 49; RESP 16; O2SAT 97
[2017-06-26 12:27] LABS: ACETAMINOPHEN LESS THAN 2.0 MCG/ML (10.0-30.0)
[2017-06-26 12:52] VITALS: BP 105/59; PULSE 52; RESP 18; O2SAT 99
[2017-06-26 13:39] VITALS: BP 132/61
--- NOTE | 2017-06-26 13:57 | EKG ---
Date Performed: 06/26/2017 Time Performed: 10:20:35 PTAGE: 36 years EKG: SINUS BRADYCARDIA POSSIBLE LEFT ATRIAL ENLARGEMENT BORDERLINE ECG PREVIOUS TRACING : 03/15/2017 14.09 Compared to prior tracing no significant change DOCTOR: Odin Carrion Interpretating Date/Time 06/26/2017 13:56:29
[2017-06-26] MEDS ORDERED: MACR100C2 PO (14:05)
== END 2017-06-26 14:21 | disposition home or self-care (01) ==
LOC: PHED 09:50
DX: R41.82 Altered mental status, unspecified (principal); N39.0 Urinary tract infection, site not specified; B96.89 Other specified bacterial agents as the cause of diseases classified elsewhere; F17.200 Nicotine dependence, unspecified, uncomplicated; F31.9 Bipolar disorder, unspecified; Z79.899 Other long term (current) drug therapy
CPT/HCPCS: 70450; 80053; 80307; 81001; 83605; 84703; 85025; 87086; 93005; 96360; 96361; 99285; J7030

== ENCOUNTER 2017-12-13 12:05 | Emergency (ER) | payer MEDICAID ==
[~2017-12-13] VITALS: Ht 172.7 cm; Wt 63.7 kg
[~2017-12-13 12:05] MED LIST changes: -DOXY100C PO; +MACR100C2 PO
[2017-12-13 12:14] VITALS: BP 130/67; PULSE 72; RESP 16; TEMP 97.6; O2SAT 100
--- NOTE | 2017-12-13 12:27 | PD ---
HPI Chief Complaint: General Weakness Time Seen by Provider: 12:24 Travel History International Travel<30 days: No Contact w/Intl Traveler<30days: No Traveled to known affect area: No History of Present Illness HPI Per mother the patient has been on a methadone clinic, and has had her levels decreased from about 170 down to 20 mg per day. Patient was supposed to have her right tooth extracted, however the dentist decided not to do it and wanted her to get cleared further, particularly due to elevation of blood pressure, as well as possibility of mild withdrawals. The patient's only complaint was for toothache. The mother who was at bedside seem to be more concerned about her state of drowsiness, and how sleepy she was. Reviewing the patient's medication list it was noted that the patient was on Ambien, Remeron, methadone , Xanax and an antipsychotic. I explained to the mother that she will have a thorough evaluation however that most likely it is pharmacology related drowsiness. Per chart review the patient has multiple allergies including to BuSpar Keflex fentanyl Haldol latex Ativan morphine Phenergan and Compazine Past medical history includes PTSD, tricuspid valve disorder, irregular heartbeat, respiratory failure due to overdose, colectomy due to familial adenomatous polyposis, ileorectal anastomosis, appendectomy, diabetes, scoliosis , ADHD, bipolar, substance abuse with opiates and benzos including methadone PFSH Past Medical History Hx Anticoagulant Therapy: Yes (81 MG. ASA DAILY) ADD: Yes ADHD: Yes Anemia: Yes Arthritis: No Asthma: No Autoimmune Disease: No Blood Disorders: No Bipolar Disorder: Yes Anxiety: Yes Depression: Yes Heart Rhythm Problems: Yes (TACHYCARDIA) Cancer: Yes (PRECANCEROUS POLYPS) Cardiac Catheterization: Yes Cardiovascular Problems: Yes (SINOATRIAL NODE DYSFUNCTION, TRICUSPID VALVE D/O) High Cholesterol: No Chemotherapy: No Chest Pain: No Congestive Heart Failure: No COPD: No Cerebrovascular Accident: No Diabetes: Yes Diminished Hearing: No Endocrine: No Gastrointestinal Disorders: Yes (COLECTOMY DUE TO Familial adenomatous polyposis ) GERD: No Genitourinary: Yes Headaches: No Hepatitis: No Hiatal Hernia: No Hypertension: No Immune Disorder: No Musculoskeletal: No Psychiatric: Yes Reproductive: No Respiratory: Yes (repiratory failure d/t overdose) Immunizations Current: Yes Myocardial Infarction: No Radiation Therapy: No Seizures: No Sleep Apnea: No Ulcer: No ?: Not : 12 Para: 4 Miscarriage: 8 : 0 Past Surgical History Abdominal Surgery: Yes (COLECTOMY,APPENDECTOMY, Ileorectal anastomosis) AICD: No Appendectomy: Yes (1994) Arteriovenous Shunt: No Cardiac Surgery: No Ear Surgery: No Endocrine Surgery: No Eye Surgery: No Genitourinary Surgery: No Gynecologic Surgery: No Insulin Pump: No Oral Surgery: No Pacemaker: No Thoracic Surgery: No Other Surgery: Yes (TIBULO VILLOUS MASS REMOVED 04/2013) Social History Alcohol Use: No Tobacco Use: Yes (1 PPD) Substance Use: Yes (OPIATES, BENZOS, METHADONE) Allergies-Medications (Allergen,Severity, Reaction): Coded Allergies: cephalexin (Unverified Allergy, Severe, BLOODY STOOL, 12/13/17) fentanyl (Unverified Allergy, Severe, Tachycardia, SEIZURES, 12/13/17) haloperidol (Unverified Allergy, Severe, EPS, 12/13/17) lorazepam (Unverified Allergy, Severe, sts memory loss, 12/13/17) morphine (Unverified Allergy, Severe, Seizures, 12/13/17) prochlorperazine (Unverified Allergy, Severe, seizures, 12/13/17) promethazine (Unverified Allergy, Severe, Tachycardia, 12/13/17) latex (Unverified Allergy, Intermediate, Itching, 12/13/17) buspirone (Unverified Allergy, Unknown, 12/13/17) Reported Meds & Prescriptions Reported Meds & Active Scripts Active Reported Methadone (Methadone HCl) 10 Mg Tab 25 Mg PO DAILY Remeron (Mirtazapine) 15 Mg Tab 7.5 Mg PO HS Olanzapine 5 Mg Tab 5 Mg PO HS Zolpidem (Zolpidem Tartrate) 10 Mg Tab 10 Mg PO HS PRN Alprazolam 2 Mg Tab 2 Mg PO TID PRN Review of Systems General / Constitutional: Positive: Other (Tired, toothache) Eyes: No: Visual changes HENT: No: Headaches Cardiovascular: No: Chest Pain or Discomfort Respiratory: No: Shortness of Breath Gastrointestinal: No: Abdominal Pain Genitourinary: No: Dysuria Musculoskeletal: No: Pain Skin: No Rash Neurologic: No: Weakness Psychiatric: No: Depression Endocrine: No: Polydipsia Hematologic/Lymphatic: No: Easy Bruising Physical Exam Narrative GENERAL: SKIN: Warm and dry. HEAD: Atraumatic. Normocephalic. EYES: Pupils equal and round. No scleral icterus. No injection or drainage. ENT: No nasal bleeding or discharge. Mucous membranes pink and moist. NECK: Trachea midline. No JVD. CARDIOVASCULAR: Regular rate and rhythm. RESPIRATORY: No accessory muscle use. Clear to auscultation. Breath sounds equal bilaterally. GASTROINTESTINAL: Abdomen soft, non-tender, nondistended. Hepatic and splenic margins not palpable. MUSCULOSKELETAL: Extremities without clubbing, cyanosis, or edema. No obvious deformities. NEUROLOGICAL: Awake and alert. No obvious cranial nerve deficits. Motor grossly within normal limits. Five out of 5 muscle strength in the arms and legs. Normal speech. But sleepy PSYCHIATRIC: Appropriate mood and affect; insight and judgment normal. Data Data Last Documented VS Vital Signs Date Time Temp Pulse Resp B/P (MAP) Pulse Ox O2 Delivery O2 Flow Rate FiO2 12/13/17 12:14 97.6 72 16 130/67 (88) 100 Orders Orders Complete Blood Count With Diff (12/13/17 12:36) Comprehensive Metabolic Panel (12/13/17 12:36) Troponin I (12/13/17 12:36) B-Type Natriuretic Peptide (12/13/17 12:36) Prothrombin Time / Inr (Pt) (12/13/17 12:36) Act Partial Throm Time (Ptt) (12/13/17 12:36) Lipase (12/13/17 12:36) Urinalysis - C+S If Indicated (12/13/17 12:36) Thyroid Stimulating Hormone (12/13/17 12:36) Chest, Single Ap (12/13/17 12:36) Ct Brain W/O Iv Contrast(Rout) (12/13/17 12:36) Iv Access Insert/Monitor (12/13/17 12:36) Ecg Monitoring (12/13/17 12:36) Oximetry (12/13/17 12:36) Ed Urine Pregnancytest Poc (12/13/17 12:36) Drug Screen, Random Urine (12/13/17 12:36) Alcohol (Ethanol) (12/13/17 12:36) Salicylates (Aspirin) (12/13/17 12:36) Tylenol (Acetaminophen) (12/13/17 12:36) Ibuprofen (Motrin) (12/13/17 13:45) Labs Laboratory Tests Test 12/13/17 12:53 12/13/17 12:55 Prothrombin Time 11.2 SEC Prothromb Time International Ratio 1.1 RATIO Activated Partial Thromboplast Time 25.7 SEC Urine Color YELLOW Urine Turbidity CLEAR Urine pH 5.0 Urine Specific [place] 1.015 Urine Protein NEG mg/dL Urine Glucose (UA) NEG mg/dL Urine Ketones NEG mg/dL Urine Occult Blood NEG Urine Nitrite NEG Urine Bilirubin NEG Urine Urobilinogen 0.2 MG/DL Urine Leukocyte Esterase TRACE Urine RBC 0-3 /hpf Urine WBC 3-5 /hpf Urine Squamous Epithelial Cells > 8 /hpf Microscopic Urinalysis Comment CULT NOT INDICATED Blood Urea Nitrogen 12 MG/DL Creatinine 0.80 MG/DL Random Glucose 93 MG/DL Total Protein 7.2 GM/DL Albumin 3.2 GM/DL Calcium Level 8.6 MG/DL Alkaline Phosphatase 62 U/L Aspartate Amino Transf (AST/SGOT) 66 U/L Alanine Aminotransferase (ALT/SGPT) 121 U/L Total Bilirubin 0.3 MG/DL Sodium Level 142 MEQ/L Potassium Level 4.5 MEQ/L Chloride Level 109 MEQ/L Carbon Dioxide Level 31.3 MEQ/L Anion Gap 2 MEQ/L Estimat Glomerular Filtration Rate 81 ML/MIN Troponin I LESS THAN 0.02 NG/ML B-Type Natriuretic Peptide 24 PG/ML Lipase 66 U/L Thyroid Stimulating Hormone 3rd Gen 1.490 uIU/ML Urine Opiates Screen NEG Urine Barbiturates Screen NEG Urine Amphetamines Screen NEG Urine Benzodiazepines Screen POS Urine Cocaine Screen NEG Urine Cannabinoids Screen NEG Ethyl Alcohol Level LESS THAN 3 MG/DL White Blood Count 3.9 TH/MM3 Red Blood Count 4.30 MIL/MM3 Hemoglobin 11.1 GM/DL Hematocrit 34.8 % Mean Corpuscular Volume 80.9 FL Mean Corpuscular Hemoglobin 25.8 PG Mean Corpuscular Hemoglobin Concent 31.9 % Red Cell Distribution Width 15.4 % Platelet Count 230 TH/MM3 Mean Platelet Volume 7.2 FL Neutrophils (%) (Auto) 53.5 % Lymphocytes (%) (Auto) 36.0 % Monocytes (%) (Auto) 8.6 % Eosinophils (%) (Auto) 0.9 % Basophils (%) (Auto) 1.0 % Neutrophils # (Auto) 2.2 TH/MM3 Lymphocytes # (Auto) 1.4 TH/MM3 Monocytes # (Auto) 0.3 TH/MM3 Eosinophils # (Auto) 0.0 TH/MM3 Basophils # (Auto) 0.0 TH/MM3 CBC Comment DIFF FINAL Differential Comment [facility] Medical Decision Making Medical Screen Exam Complete: Yes Emergency Medical Condition: Yes Medical Record Reviewed: Yes Differential Diagnosis Hypothyroidism versus dehydration versus anemia versus hypokalemia versus opiate withdrawal Narrative Course UA is not consistent with a UTI Toxicology currently positive for benzodiazepine Chest x-ray read by radiologist as no acute disease CT head read by radiologist as no acute intracranial abnormality. CBC shows WBC of 3.9, H&H of 11/35, platelet count within normal limits at 230, and no left shift. Coagulation profile within normal limits Electrolytes were all within normal limits, including normal kidney and pancreatic functions as well as the negative first set of cardiac enzymes and a normal TSH screen. While the patient was on the ER observation, patient's blood pressure were under control, she is not tachycardic, pulse ox with a good Pleth wave showed room air pulse ox of 98-100 which is within normal limits and without any evidence of hypoxemia. The patient Repeatedly asking for pain medication, I made the patient aware that she could receive Motrin p.o., patient was very unhappy with that and wanted narcotic pain medication for her toothache. I advised the patient the such thing will not happen especially since she is in the recovery methadone clinic. Mother agreed. Shortly after the patient became upset and signed out AGAINST MEDICAL ADVICE at 1350 during the time when the mother had left to go get some snacks from the machine. The patient is an adult and she is able to make her own decisions concerning her health care, an entire workup was performed and she was very close to being discharged however the patient left prior to me being able to discuss her findings with her and her mother. I advised the patient as she was leaving that she can obtain her medical records as an outpatient. Diagnosis Primary Impression: Drowsiness secondary to benzodiazepene use Patient Instructions: General Instructions Disposition: 07 AGAINST MEDICAL ADVICE Condition: Stable Aroldo Castillo MD December 13, 2017 12:27
--- NOTE | 2017-12-13 13:02 | RADRPT ---
EXAM DATE/TIME: 12/13/2017 12:38 [facility] COMPARISON: CHEST SINGLE AP, March 15, 2017, 14:37. INDICATIONS : Fatigue and shortness of breath. MEDICAL HISTORY : Anticoagulant therapy. SURGICAL HISTORY : Appendectomy. Colectomy. ENCOUNTER: Initial ACUITY: 1 day PAIN SCORE: 0/10 LOCATION: Bilateral chest FINDINGS: A single view of the chest demonstrates the lungs to be symmetrically aerated without evidence of mas s, infiltrate or effusion. The cardiomediastinal contours are unremarkable. Osseous structures are intact. Bilateral nipple shadows are again noted. CONCLUSION: No acute disease. Ghulam Daniels MD on December 13, 2017 at 13:00 Board Certified Radiologist. This report was verified electronically.
[2017-12-13 13:10] LABS: BILIRUBIN, URINE NEG (NEG); BLOOD, URINE NEG (NEG); GLUCOSE,URINE NEG (NEG); KETONE, URINE NEG (NEG); NITRITE,URINE NEG (NEG); URINE COLOR YELLOW (YELLW/STRAW); URINE LEUKOCYTE ESTERASE TRACE (NEG)
[2017-12-13 13:16] LABS: RBC, URINE 0-3 /hpf (0-3); SQUAMOUS EPITHELIAL CELL URINE > 8 /hpf (0-5)
--- NOTE | 2017-12-13 13:20 | RADRPT ---
EXAM DATE/TIME: 12/13/2017 13:03 [place] COMPARISON: CT BRAIN W/O CONTRAST, June 26, 2017, 10:53. INDICATIONS : Altered mental status. RADIATION DOSE: 50.62 CTDIvol (mGy) MEDICAL HISTORY : Cardiovascular disease. Diabetes mellitus type 2. SURGICAL HISTORY : Colon resection. Appendectomy. ENCOUNTER: Initial ACUITY: 1 day PAIN SCALE: 0/10 LOCATION: cranial TECHNIQUE: Multiple contiguous axial images were obtained of the head. Using automated exposure control and adj ustment of the mA and/or kV according to patient size, radiation dose was kept as low as reasonably a chievable to obtain optimal diagnostic quality images. DICOM format image data is available electro nically for review and comparison. FINDINGS: CEREBRUM: The ventricles are normal for age. No evidence of midline shift, mass lesion, hemorrhage or acute in farction. No extra-axial fluid collections are seen. POSTERIOR FOSSA: The cerebellum and brainstem are intact. The 4th ventricle is midline. The cerebellopontine angle i s unremarkable. EXTRACRANIAL: The visualized portion of the orbits is intact. SKULL: The calvaria is intact. No evidence of skull fracture. CONCLUSION: Negative noncontrast CT of the brain. Kraig Dong MD on December 13, 2017 at 13:15 Board Certified Radiologist. This report was verified electronically.
[2017-12-13 13:36] LABS: CHLORIDE 109 MEQ/L (98-107); SODIUM (NA) 142 MEQ/L (136-145)
[2017-12-13 13:37] LABS: AUTOMATED NEUTROPHIL # 2.2 TH/MM3 (1.8-7.7); EOSINOPHIL % 0.9 % (0.0-4.0); HEMATOCRIT 34.8 % (35.0-46.0); HEMOGLOBIN 11.1 GM/DL (11.6-15.3); LYMPHOCYTE # 1.4 TH/MM3 (1.0-4.8); MEAN CELL VOLUME 80.9 FL (80.0-100.0); MEAN CORPUSCULAR HEMOGLOBIN 25.8 PG (27.0-34.0); MEAN CORPUSCULAR HGB CONC 31.9 % (32.0-36.0); MEAN PLATELET VOLUME 7.2 FL (7.0-11.0); MONO % 8.6 % (0.0-8.0); MONOCYTE # 0.3 TH/MM3 (0-0.9); NEUT % 53.5 % (16.0-70.0); PLATELET COUNT 230 TH/MM3 (150-450); RED CELL DISTRIBUTION WIDTH 15.4 % (11.6-17.2); WHITE BLOOD COUNT 3.9 TH/MM3 (4.0-11.0)
[2017-12-13 13:38] LABS: INTERNATIONAL NORMALIZED RATIO 1.1 RATIO; PROTHROMBIN TIME - PATIENT 11.2 SEC (9.8-11.6)
[2017-12-13 13:40] LABS: ALBUMIN 3.2 GM/DL (3.4-5.0); BICARBONATE 31.3 MEQ/L (21.0-32.0); BLOOD UREA NITROGEN 12 MG/DL (7-18); CALCIUM 8.6 MG/DL (8.5-10.1); GLUCOSE,RANDOM 93 MG/DL (74-106)
[2017-12-13 13:43] LABS: ALT (GPT) 121 U/L (10-53); AST (GOT) 66 U/L (15-37); GLOMERULAR FILTRATION RATE 81 ML/MIN (>89)
[2017-12-13 13:45] LABS: TOTAL BILIRUBIN ADULT 0.3 MG/DL (0.2-1.0); TOTAL PROTEIN 7.2 GM/DL (6.4-8.2)
[2017-12-13] MEDS ORDERED: IBUPROFEN 800 MG TAB PO ONE (13:45)
[2017-12-13 13:46] LABS: ALKALINE PHOSPHATASE 62 U/L (45-117)
[2017-12-13 13:48] LABS: TROPONIN I LESS THAN 0.02 NG/ML (0.02-0.05)
[2017-12-13 19:29] LABS: ACETAMINOPHEN LESS THAN 2.0 MCG/ML (10.0-30.0)
== END 2017-12-13 14:30 | disposition left against medical advice (07) ==
LOC: PHED 12:05
DX: R40.0 Somnolence (principal); F19.90 Other psychoactive substance use, unspecified, uncomplicated; K08.89 Other specified disorders of teeth and supporting structures; E11.9 Type 2 diabetes mellitus without complications; M41.9 Scoliosis, unspecified; F31.9 Bipolar disorder, unspecified; F43.10 Post-traumatic stress disorder, unspecified; F41.9 Anxiety disorder, unspecified; F90.9 Attention-deficit hyperactivity disorder, unspecified type
CPT/HCPCS: 70450; 71045; 80053; 80307; 81001; 83690; 83880; 84443; 84484; 84703; 85025; 85610; 85730; 99285

== ENCOUNTER 2018-01-07 06:24 | Emergency (ER) | payer MEDICAID ==
[~2018-01-07] VITALS: Ht 172.7 cm; Wt 55.0 kg
[~2018-01-07 06:24] MED LIST changes: -MACR100C2 PO
[2018-01-07 06:35] VITALS: BP 150/96; PULSE 88; RESP 18; O2SAT 100
[2018-01-07] MEDS ORDERED: CLON0.1T PO (06:52)
[2018-01-07] MEDS ORDERED: ALPR2TAB3 PO (06:52)
[2018-01-07] MEDS ORDERED: BUPR100T PO (06:52)
[2018-01-07 07:03] VITALS: BP 145/104; PULSE 83; RESP 21; O2SAT 99
[2018-01-07] MEDS ORDERED: SODIUM CHLORID 0.9% 500 ML INJ 500 ML IV ONE (07:30)
[2018-01-07] MEDS ORDERED: ONDANSETRON ODT 4 MG TAB PO ONE (07:30)
--- NOTE | 2018-01-07 07:47 | PD ---
HPI Chief Complaint: Neuro Symptoms/ Deficits Time Seen by Provider: 07:06 Travel History International Travel<30 days: No Contact w/Intl Traveler<30days: No Traveled to known affect area: No History of Present Illness HPI Patient is a 37 year old female who comes in complaining of "feeling like I was swallowing my tongue and grinding my teeth." She has a long history of polysubstance abuse and says that they are trying to wean her off Methadone. She also reports her Xanax was taken from her by the police and she has not had it in 2 days. She says she went to the Methadone clinic this morning and since taking this dose of the medication, she is feeling better. She remembers the entire event. Her mother is concerned for "seizure or stroke." She denies fever or chills. She denies headache, chest pain, SOB. Severity is mild to moderate. PFSH Past Medical History Hx Anticoagulant Therapy: Yes (81 MG. 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 ) GERD: No Genitourinary: Yes Headaches: No Hepatitis: No Hiatal Hernia: No Hypertension: Yes Immune Disorder: No Musculoskeletal: No Psychiatric: Yes Reproductive: No Respiratory: Yes (respiratory failure d/t overdose) Immunizations Current: Yes Myocardial Infarction: No Radiation Therapy: No Seizures: No Sleep Apnea: No Ulcer: No ?: Not LMP: 12/31/17 : 12 Para: 4 Miscarriage: 8 : 0 Past Surgical History Abdominal Surgery: Yes (COLECTOMY,APPENDECTOMY, Ileorectal anastomosis) AICD: No Appendectomy: Yes (1994) Arteriovenous Shunt: No Cardiac Surgery: No Ear Surgery: No Endocrine Surgery: No Eye Surgery: No Genitourinary Surgery: No Gynecologic Surgery: No Insulin Pump: No Oral Surgery: No Pacemaker: No Thoracic Surgery: No Other Surgery: Yes (TIBULO VILLOUS MASS REMOVED 04/2013) Social History Alcohol Use: No Tobacco Use: Yes (1 PPD) Substance Use: Yes (OPIATES, BENZOS, METHADONE) Allergies-Medications (Allergen,Severity, Reaction): Coded Allergies: cephalexin (Verified Allergy, Severe, BLOODY STOOL, 01/07/18) fentanyl (Verified Allergy, Severe, Tachycardia, SEIZURES, 01/07/18) haloperidol (Verified Allergy, Severe, EPS, 01/07/18) lorazepam (Verified Allergy, Severe, sts memory loss, 01/07/18) morphine (Verified Allergy, Severe, Seizures, 01/07/18) prochlorperazine (Verified Allergy, Severe, seizures, 01/07/18) promethazine (Verified Allergy, Severe, Tachycardia, 01/07/18) latex (Verified Allergy, Intermediate, Itching, 01/07/18) buspirone (Verified Allergy, Unknown, 01/07/18) Reported Meds & Prescriptions Reported Meds & Active Scripts Active Reported Clonidine (Clonidine HCl) 0.1 Mg Tab 0.1 Mg PO BID Alprazolam 2 Mg Tab 2 Mg PO QID Bupropion HCl ER 12 HR (Bupropion HCl) 100 Mg Tab 100 Mg PO BID Remeron (Mirtazapine) 15 Mg Tab 7.5 Mg PO HS Olanzapine 5 Mg Tab 5 Mg PO HS Zolpidem (Zolpidem Tartrate) 10 Mg Tab 10 Mg PO HS PRN Review of Systems Except as stated in HPI: all other systems reviewed are Neg General / Constitutional: No: Fever, Chills Eyes: No: Blurred Vision HENT: No: Headaches, Lightheadedness Cardiovascular: No: Chest Pain or Discomfort Respiratory: No: Shortness of Breath Gastrointestinal: No: Nausea, Vomiting Musculoskeletal: No: Myalgias, Edema Skin: No Rash, No Change in Pigmentation Neurologic: No: Weakness, Dizziness, Syncope Psychiatric: Positive: Anxiety Physical Exam Narrative GENERAL: Awake and alert, in no acute distress. SKIN: Focused skin assessment warm/dry. HEAD: Atraumatic. Normocephalic. EYES: Pupils equal and round. No scleral icterus. EOMI. ENT: Mucous membranes pink and moist. NECK: Trachea midline. No JVD. CARDIOVASCULAR: Regular rate and rhythm. No murmur appreciated. RESPIRATORY: No accessory muscle use. Clear to auscultation. Breath sounds equal bilaterally. GASTROINTESTINAL: Abdomen soft, non-tender, nondistended. MUSCULOSKELETAL: No obvious deformities. No clubbing. No cyanosis. No edema. NEUROLOGICAL: Awake and alert. No obvious cranial nerve deficits. Motor grossly within normal limits. Normal speech. PSYCHIATRIC: Appropriate mood and affect; insight and judgment normal. Data Data Last Documented VS Vital Signs Date Time Temp Pulse Resp B/P (MAP) Pulse Ox O2 Delivery O2 Flow Rate FiO2 01/07/18 07:03 80 21 99 Room Air 01/07/18 07:03 145/104 (118) Orders Orders Ondansetron Odt (Zofran Odt) (01/07/18 07:30) Urinalysis - C+S If Indicated (01/07/18 07:26) Ed Urine Pregnancytest Poc (01/07/18 07:26) Drug Screen, Random Urine (01/07/18 07:26) Iv Access Insert/Monitor (01/07/18 07:26) Complete Blood Count With Diff (01/07/18 07:26) Comprehensive Metabolic Panel (01/07/18 07:26) Ct Brain W/O Iv Contrast(Rout) (01/07/18 ) Sodium Chlorid 0.9% 500 Ml Inj (Ns 500 M (01/07/18 07:30) Potassium Chloride (Kcl) (01/07/18 08:45) Labs Laboratory Tests Test 01/07/18 07:50 01/07/18 07:55 White Blood Count 4.1 TH/MM3 Red Blood Count 5.08 MIL/MM3 Hemoglobin 13.8 GM/DL Hematocrit 41.6 % Mean Corpuscular Volume 81.8 FL Mean Corpuscular Hemoglobin 27.2 PG Mean Corpuscular Hemoglobin Concent 33.2 % Red Cell Distribution Width 15.7 % Platelet Count 269 TH/MM3 Mean Platelet Volume 7.3 FL Neutrophils (%) (Auto) 74.5 % Lymphocytes (%) (Auto) 19.6 % Monocytes (%) (Auto) 5.1 % Eosinophils (%) (Auto) 0.1 % Basophils (%) (Auto) 0.7 % Neutrophils # (Auto) 3.1 TH/MM3 Lymphocytes # (Auto) 0.8 TH/MM3 Monocytes # (Auto) 0.2 TH/MM3 Eosinophils # (Auto) 0.0 TH/MM3 Basophils # (Auto) 0.0 TH/MM3 CBC Comment DIFF FINAL Differential Comment Blood Urea Nitrogen 12 MG/DL Creatinine 0.63 MG/DL Random Glucose 99 MG/DL Total Protein 7.0 GM/DL Albumin 3.5 GM/DL Calcium Level 7.5 MG/DL Alkaline Phosphatase 70 U/L Aspartate Amino Transf (AST/SGOT) 62 U/L Alanine Aminotransferase (ALT/SGPT) 135 U/L Total Bilirubin 0.4 MG/DL Sodium Level 145 MEQ/L Potassium Level 3.0 MEQ/L Chloride Level 112 MEQ/L Carbon Dioxide Level 23.9 MEQ/L Anion Gap 9 MEQ/L Estimat Glomerular Filtration Rate 107 ML/MIN Urine Color YELLOW Urine Turbidity HAZY Urine pH 5.5 Urine Specific [place] 1.013 Urine Protein NEG mg/dL Urine Glucose (UA) NEG mg/dL Urine Ketones 40 mg/dL Urine Occult Blood NEG Urine Nitrite NEG Urine Bilirubin NEG Urine Urobilinogen LESS THAN 2.0 MG/DL Urine Leukocyte Esterase SMALL Urine RBC 1 /hpf Urine WBC 3 /hpf Urine Squamous Epithelial Cells 11 /hpf Urine Mucus MANY /lpf Microscopic Urinalysis Comment CULT NOT INDICATED Urine Opiates Screen NEG Urine Barbiturates Screen NEG Urine Amphetamines Screen NEG Urine Benzodiazepines Screen POS Urine Cocaine Screen NEG Urine Cannabinoids Screen NEG MDM Medical Decision Making Medical Screen Exam Complete: Yes Emergency Medical Condition: Yes Medical Record Reviewed: Yes Differential Diagnosis Electrolyte abnormality versus dehydration versus withdrawal Narrative Course Patient is a 37-year-old female who comes in with complaints of feeling as if she is going to swallow her tongue and grinding her teeth. Exam shows no neurologic abnormalities. IV established, labs sent. Labs show a potassium of 3.0, this was replaced. CT head performed shows no acute abnormalities. I explained to the patient that I have not found anything to explain the symptoms. She reports feeling better, and is comfortable going home. She is advised follow-up with her doctors. Advised return anytime for any worsening symptoms. Last [address] 01/07/18 0000 Signed Impressions: CONCLUSION: 1. No acute intracranial abnormality Diagnosis Primary Impression: Hypokalemia Patient Instructions: General Instructions, Hypokalemia (ED), Opioid Withdrawal (ED) Additional Instructions: Drink plenty of fluids to stay hydrated. Follow-up with your doctors. Return anytime for any worsening symptoms. Disposition: 01 DISCHARGE HOME Condition: Stable Deepika Currie MD January 07, 2018 07:46
[2018-01-07 08:16] LABS: AUTOMATED NEUTROPHIL # 3.1 TH/MM3 (1.8-7.7); BASOPHIL % 0.7 % (0.0-2.0); EOSINOPHIL % 0.1 % (0.0-4.0); HEMATOCRIT 41.6 % (35.0-46.0); HEMOGLOBIN 13.8 GM/DL (11.6-15.3); LYMPH % 19.6 % (9.0-44.0); LYMPHOCYTE # 0.8 TH/MM3 (1.0-4.8); MEAN CELL VOLUME 81.8 FL (80.0-100.0); MEAN CORPUSCULAR HEMOGLOBIN 27.2 PG (27.0-34.0); MEAN CORPUSCULAR HGB CONC 33.2 % (32.0-36.0); MEAN PLATELET VOLUME 7.3 FL (7.0-11.0); MONO % 5.1 % (0.0-8.0); MONOCYTE # 0.2 TH/MM3 (0-0.9); NEUT % 74.5 % (16.0-70.0); PLATELET COUNT 269 TH/MM3 (150-450); RED BLOOD COUNT 5.08 MIL/MM3 (4.00-5.30); RED CELL DISTRIBUTION WIDTH 15.7 % (11.6-17.2); WHITE BLOOD COUNT 4.1 TH/MM3 (4.0-11.0)
[2018-01-07 08:31] LABS: BILIRUBIN, URINE NEG (NEG); BLOOD, URINE NEG (NEG); GLUCOSE,URINE NEG (NEG); KETONE, URINE 40 mg/dL (NEG); MUCUS URINE MANY /lpf (OCC); NITRITE,URINE NEG (NEG); PH, URINE 5.5 (5.0-8.5); SQUAMOUS EPITHELIAL CELL URINE 11 /hpf (0-5); URINE COLOR YELLOW (YELLW/STRAW); URINE LEUKOCYTE ESTERASE SMALL (NEG)
[2018-01-07 08:32] LABS: ALBUMIN 3.5 GM/DL (3.4-5.0); AST (GOT) 62 U/L (15-37); BICARBONATE 23.9 MEQ/L (21.0-32.0); BLOOD UREA NITROGEN 12 MG/DL (7-18); CALCIUM 7.5 MG/DL (8.5-10.1); CHLORIDE 112 MEQ/L (98-107); CREATININE 0.63 MG/DL (0.50-1.00); GLOMERULAR FILTRATION RATE 107 ML/MIN (>89); GLUCOSE,RANDOM 99 MG/DL (74-106); SODIUM (NA) 145 MEQ/L (136-145)
[2018-01-07 08:33] LABS: ALT (GPT) 135 U/L (10-53)
[2018-01-07 08:36] LABS: ALKALINE PHOSPHATASE 70 U/L (45-117); TOTAL BILIRUBIN ADULT 0.4 MG/DL (0.2-1.0)
[2018-01-07] MEDS ORDERED: POTASSIUM CHLORIDE 10 MEQ CONTROLLED RELEASE TAB PO ONE (08:45)
--- NOTE | 2018-01-07 09:15 | RADRPT ---
EXAM DATE: 01/07/2018 9:06 AM EDT AGE/SEX: 37 years / Female INDICATIONS: Altered mental status. CLINICAL DATA: This is the patient's initial encounter. Patient reports that signs and symptoms have been present for 1 day and indicates a pain score of 0/10. MEDICAL/SURGICAL HISTORY: Cardiovascular disease. Hypertension. None. RADIATION DOSE: 56.35 CTDI (mGy) COMPARISON: [facility], CT BRAIN W/O CONTRAST, 12/13/2017. . TECHNIQUE: CT of the head without contrast. Using automated exposure control and adjustment of the mA and/or kV according to patient size, radiation dose was kept as low as reasonably achievable to ob tain optimal diagnostic quality images. FINDINGS: Cerebrum: The ventricles are normal for age. No evidence of midline shift, mass lesion, hemorrhage or acute infarction. No extraaxial fluid collections are seen. Posterior Fossa: The cerebellum and brainstem are intact. The 4th ventricle is midline. The cerebe llopontine angle is unremarkable. Extracranial: The visualized portion of the orbits is intact. Skull: The calvaria is intact. No evidence of skull fracture. CONCLUSION: 1. No acute intracranial abnormality Electronically signed by: Renato Spann MD 01/07/2018 9:14 AM EDT
== END 2018-01-07 09:43 | disposition home or self-care (01) ==
LOC: NEPE 06:24
DX: E87.6 Hypokalemia (principal); F90.9 Attention-deficit hyperactivity disorder, unspecified type; F31.9 Bipolar disorder, unspecified; F41.9 Anxiety disorder, unspecified; E11.9 Type 2 diabetes mellitus without complications; I10 Essential (primary) hypertension; F17.200 Nicotine dependence, unspecified, uncomplicated; F19.10 Other psychoactive substance abuse, uncomplicated
CPT/HCPCS: 70450; 80053; 80307; 81001; 84703; 85025; 96360; 99284; J7040